=== PATIENT | female | born 1960 ===

== ENCOUNTER 2016-02-22 06:54 | Emergency (ER) | payer OTHER ==
[~2016-02-22] VITALS: Ht 152.4 cm; Wt 111.8 kg
[~2016-02-22 06:54] MED LIST: ALBU8.5H2 IH; BACL10TA PO; CALC600T12 PO; CEFT2FRO2 IV; CYCL5TAB PO; FLUT16SP NASAL; LACT10SO PO; LORA10CA PO; MAGN250T29 PO; METO10TA3 PO; MULT1TAB59 PO; OMEP20CA11 PO; OXYC5TAB72 PO; PEPCID COMPLETE PO; POTA10TA38 PO; SYMINH INHALATION
[2016-02-22 06:59] VITALS: PULSE 130; RESP 18; O2SAT 95
[2016-02-22] MEDS ORDERED: 0.9% Sodium Chloride 1,000 ML IV ONE ×2 (07:27→08:27)
[2016-02-22] MEDS ORDERED: HYDROcodone-APAP 5-325 mg Tablet PO ONE (07:30)
[2016-02-22 07:49] LABS: Platelet Count 50 bil/L (150-400)
[2016-02-22 08:03] LABS: BASOPHILS % (AUTO) 0.6 % (0-3); EOSINOPHILS % (AUTO) 4.3 % (0-5); MONOCYTES % (AUTO) 10.9 % (4-12); Mean Corpuscular Volume 98.4 fL (81-100)
[2016-02-22 09:03] LABS: Magnesium 1.6 mg/dL (1.6-2.6)
[2016-02-22 09:04] LABS: TROPONIN T < 0.010 ug/L (0.0-0.011)
--- NOTE | 2016-02-22 09:29 | ED.REPORT ---
[facility] Illness Date of Service Feb 22, 2016 ED Provider: Darrick Soares MD Patient is as 56 year old female with a hx of non-alcoholic cirrhosis who presents to the ED complaining of cold symptoms onset one day. Pt complains of general myalgia, malaise, fatigue, fever, chills, cough, headache. Pt has asthma and is on albuterol. Nursing Notes Stated Complaint: COUGH Chief Complaint: FLU/Cold Symptoms Nursing Notes Reviewed: Yes Allergies: Coded Allergies: morphine (Verified Allergy, Severe, Nausea,Vomiting, 01/27/16) prednisone (Verified Allergy, Unknown, 01/27/16) tramadol (Verified Adverse Reaction, Intermediate, Dizziness, 01/27/16) Scheduled Calcium Carbonate (Calcium) 600 Mg Tablet 600 MG PO DAILY Lactulose (Lactulose) 10 Gm/15 Ml Solution 10 GM PO TID Loratadine (Claritin) 10 Mg Capsule 10 MG PO DAILY Magnesium Oxide (Magnesium) 250 Mg Tablet 500 MG PO DAILY Multivitamin/Iron/Folic Acid (Cerovite Advanced Form Tab) 1 Each Tablet 1 EACH PO DAILY Omeprazole (Omeprazole) 20 Mg Capsule.dr 20 MG PO DAILY Potassium Chloride (Potassium Chloride) 10 Meq Tab.er.prt 10 MEQ PO BID Scheduled PRN ([Pepcid Complete]) 1-2 TAB PO PRN For Indigestion Albuterol HFA (Proair HFA) 8.5 Gm Hfa.aer.ad 2 PUFFS IH PRN For Shortness of Breath Budesonide/Formoterol 160-4.5 mcg Inh (Symbicort 160-4.5 mcg Inh) 120 Puff Inhaler 1 PUFF INHALATION BID PRN PRN For Shortness of Breath Cyclobenzaprine (Cyclobenzaprine) 5 Mg Tablet 5 MG PO TID PRN PRN Spasm Fluticasone Propionate (Fluticasone Propionate Nasal) 16 Gm [place].susp 1 SPRAY NASAL PRN allergies Metoclopramide (Metoclopramide) 10 Mg Tablet 10 MG PO QID PRN PRN For Nausea oxyCODONE (oxyCODONE) 5 Mg Tablet 5 MG PO PRN For Pain General Time Seen by Provider: 07:26 Chief Complaint Other (flu-like symptoms) Hx Obtained From: Patient Arrived By: Walk-in Onset Occurred: 1 day ago Symptom Duration: Since onset Severity: Current: No pain currently Past Medical History Past Medical History Non-alcoholic liver cirrhosis Gallbladder disease Uterine cancer Peripheral neuropathy Osteoporosis Asthma Reports: Diabetes mellitus Past Surgical History Thumb surgery Reports: Appendectomy, Hysterectomy Smoking History Former Smoker Social History Alcohol Use: Denies alcohol use Drug Use: Denies drug use Other Social History: Good social support, Local resident Ambulatory Status Independent Review of Systems Constitutional: Reports: Chills, Fatigue, Fever, Malaise Musculoskeletal: Reports: Myalgia Neurologic: Reports: Headache Complete sys rev & neg: except as marked. Physical Exam Initial Vital Signs Vital Signs (First) Date Time Temp Pulse Resp B/P Pulse Ox O2 Delivery O2 Flow Rate FiO2 02/22/16 06:59 38.4 130 18 95 02/22/16 11:10 117/66 Room Air Initial VS: Reviewed Extremities: Vascular intact, Neuro intact, No swelling, No tenderness Psychiatric: Mood/affect normal, Behavior normal, Normal thought content General/Constitutional: Awake, Alert, No acute distress Neck: Atraumatic, Supple, Full range of motion Respiratory / Chest: Breath sounds NL, Breath sounds = bilat, No rales, No rhonchi Wheezing / Retractions: Positive: Wheezing mild (mild diffuse wheezing) Cardiovascular: Regular rhythm, Heart sounds NL, No gallop, No murmurs, No rubs Heart Rate / Rhythm: Positive: Tachycardia Skin: Atraumatic, Color NL, No rash, Warm, Dry ENT: Airway patent, Mucous membranes moist, Pharynx NL no exudate no erythema in throat Abdomen: Soft, Non-tender abdomen benign Lower Extremity / Pelvis / MS: No edema Interpretation & Diagnostics Influenza A and B negative Lab Results Interpretation Result Diagram: 02/22/16 0735 02/22/16 0735 Test 02/22/16 07:35 02/22/16 11:21 White Blood Count 3.5th/mm3 (3.8-10.1) Red Blood Count 3.82mil/mm3 (3.90-5.20) Hemoglobin 12.6g/dL (12.0-15.6) Hematocrit 37.6% (35.0-46.0) Mean Corpuscular Volume 98.4fL (81-100) Mean Corpuscular Hemoglobin 33.0pg (27.0-35.0) Mean Corpuscular Hemoglobin Concent 33.5% (32.0-37.0) Red Cell Distribution Width 14.7% (12.3-15.4) Platelet Count 50bil/L (150-400) Neutrophils (%) (Auto) 71.0% (40-74) Lymphocytes (%) (Auto) 12.6% (14-46) Monocytes (%) (Auto) 10.9% (4-12) Eosinophils (%) (Auto) 4.3% (0-5) Basophils (%) (Auto) 0.6% (0-3) Sodium Level 140mEq/L (134-144) Potassium Level 3.6mEq/L (3.5-5.2) Chloride Level 107mEq/L (97-108) Carbon Dioxide Level 23mmol/L (18-29) Blood Urea Nitrogen 5mg/dL (6-24) Creatinine 0.52mg/dL (0.57-1.00) Estimat Glomerular Filtration Rate 173mL/min (>59) Glucose Level 100mg/dL (60-99) Lactic Acid Level 1.6mmol/L (0.4-2.0) Calcium Level 7.8mg/dL (8.5-10.1) Magnesium Level 1.6mg/dL (1.6-2.6) Total Bilirubin 3.6mg/dL (0.0-1.2) Aspartate Amino Transf (AST/SGOT) 52U/L (0-50) Alanine Aminotransferase (ALT/SGPT) 20U/L (0-32) Alkaline Phosphatase 158U/L (25-150) Troponin T < 0.010ug/L (0.0-0.011) Total Protein 6.2g/dL (6.4-8.4) Albumin 2.3g/dL (3.4-5.0) Hold Olivo Top Tube Received (Received) Urine Color Dark yellow (YELLOW) Urine Appearance Clear (CLEAR,HAZY) Urine pH 8.5 (5.0-8.0) Urine Specific [place] 1.010 (1.003-1.035) Urine Protein Negativemg/dL (NEG,TRACE) Urine Glucose (UA) Negativemg/dL (NEGATIVE) Urine Ketones Negativemg/dL (NEGATIVE) Urine Occult Blood Negative (NEGATIVE) Urine Nitrite Negative (NEGATIVE) Urine Bilirubin Small (NEGATIVE) Urine Ictotest Positive (Negative) Urine Urobilinogen 4.0mg/dL (NORMAL) Urine Leukocyte Esterase Negative (NEGATIVE) Urine RBC 0-2/hpf (0-2) Urine WBC 0-5/hpf (0-5) Urine Epithelial Cells Occasional/hpf (NONE-MOD) Urine Crystals None seen (NONE SEEN) Urine Bacteria Moderate/hpf (NONE-FEW) Urine Hyaline Casts None/lpf (NONE) Urine Granular Casts None seen (NONE SEEN) Urine Waxy Casts None seen (NONE SEEN) Urine Red Blood Cell Casts None seen (NONE SEEN) Urine White Blood Cell Casts None seen (NONE SEEN) Urine Mucus None seen (None Seen) Urine Trichomonas None seen (NONE SEEN) Urine Yeast None (NONE SEEN) Urinalysis Comment None Urine Culture Reflexed Indicated ECG Interpretation ECG Interpretation: Rate 109 sinus tachycardia Time: 08:52 Interpreted by: ED physician X-Ray Chest Interpretation Chest Xray Interpretation: IMPRESSION: No acute cardiopulmonary disease. Dictated by: Errol Ridley M.D. on 02/22/2016 at 9:28 Approved by: Errol Ridley M.D. on 02/22/2016 at 9:28 View: Portable Interpretation / Wet Read by: Interpret - Radiologist Re-Evaluation & [facility] Med Decision/Clinical Course Given this patient's underlying illness I felt that a more thorough workup was indicated but this did not reveal any new or acute changes to her baseline. She looked relatively comfortable and when I rechecked her vital signs just prior to discharge her she was afebrile at 37 0 with a heart rate of 90. I think that outpatient follow-up is appropriate this point I will not prescribe Tamiflu inasmuch as her influenza test was negative. Re-Evaluation/Progress : Time of Eval: 10:14 Re-Evaluation/Progress Note: Pt rechecked. Temp 370. Heart rate 90 Informed pt of diagnosis and plan for treatment. Pt understands and agrees with plan. F/U and RTER warnings given. All questions addressed. Counseled Regarding: Diagnosis, Lab results, Need for follow-up, When/why to return to ED Patient Discharge & Departure Impression: Primary Impression: Upper respiratory infection URI type: unspecified URI Qualified Code: J06.9 - Acute upper respiratory infection, unspecified Disposition: Home Discharge Condition All VS Reviewed: Yes Condition: Stable Patient Instructions: Upper Respiratory Infection (ED) Additional Instructions: Thank you for seeking care at emergency room. Get plenty of rest and fluids and take ibuprofen 400 mg every 6 hours as needed. Return to the ER immediately for any new or worsening of symptoms. Thank you for letting us partake in your care today. Follow-up in a few days if not improving. Referrals: Ernesto Armstrong MD (PCP) Scribe Attestation Portion of this note were transcribed by Rama Young and Nestor Espinoza. I, Dr. Soares, personally performed the history, physcial exam, and medical decision- making: I reviewed and confirmed the accuracy for the information in the transcribed note. Signed by: Nestor Espinoza and josiah Rosado, 02/18/16 1045. copies to: Ernesto Armstrong MD, Kirk H MD Feb 22, 2016 09:29 NESTOR ESPINOZA Feb 22, 2016 09:48 Rama Young Feb 22, 2016 10:33
--- NOTE | 2016-02-22 09:30 | DRSVH ---
PROCEDURE: X-RAY CHEST ONE VIEW, PORTABLE ([id number]) INDICATIONS: cough TECHNIQUE: One view of the chest was acquired. COMPARISON: [facility], CR, XR CHEST 1VW (PORTABLE), 11/24/2015, 0:19. [facility], CR, XR CHEST 1VW (PORTABLE), 01/27/2016, 9:53. FINDINGS: Surgical changes and devices: None. Lungs and pleura: No pleural effusions or pneumothorax. Lungs are clear. Mediastinum: Mediastinal contours appear normal. Heart size is normal. Bones and chest wall: No suspicious bony lesions. Overlying soft tissues appear unremarkable. IMPRESSION: No acute cardiopulmonary disease. Dictated by: Errol Ridley M.D. on 02/22/2016 at 9:28 Approved by: Errol Ridley M.D. on 02/22/2016 at 9:28
[2016-02-22 11:10] VITALS: BP 117/66; PULSE 116; O2SAT 93
[2016-02-22 11:30] VITALS: BP 117/66; PULSE 116; RESP 18; O2SAT 93
[2016-02-22 12:09] LABS: APPEARANCE,URINE CLEAR (CLEAR,HAZY); COLOR,URINE DARK YELLOW (YELLOW); OCCULT BLOOD,URINE NEGATIVE (NEGATIVE); PH,URINE 8.5 (5.0-8.0)
[2016-02-22 12:10] LABS: ICTOTEST,URINE POSITIVE (Negative)
[2016-02-23] MEDS ORDERED: Ondansetron 2 mg/mL 2 mL Inj IVPUSH PRN (03:20)
[2016-02-23] MEDS ORDERED: Piperacillin-Tazo 3.375 Gm Inj 3.375 GM in Dextrose 5% Minibag Plus 50 ML IV SCH (03:20)
[2016-02-23] MEDS ORDERED: Heparin 5,000 Unit/mL Inj SUBQ SCH (03:20)
[2016-02-23] MEDS ORDERED: Alum-Mag Hydrox-Simeth 30 mL Suspension PO PRN (03:20)
[2016-02-23] MEDS ORDERED: Polyethylene Glycol (PEG) 17 Gm Powder PO PRN (03:20)
[2016-02-23 05:39] LABS: INR 1.47 ratio
[2016-02-23] MEDS ORDERED: Sodium Chloride LOK Flush 10 mL Syringe IVFLUSH SCH (08:30)
[2016-02-23] MEDS ORDERED: Azithromycin Inj 500 MG in Dextrose 5% w/Vial Mate 250 ML IV SCH (08:30)
== END 2016-02-22 11:31 | disposition home or self-care (01) ==
LOC: SED 06:54
DX: J06.9 Acute upper respiratory infection, unspecified (principal); M79.1 Myalgia; R53.81 Other malaise; R50.9 Fever, unspecified; R51 Headache; J45.909 Unspecified asthma, uncomplicated; E11.40 Type 2 diabetes mellitus with diabetic neuropathy, unspecified; Z87.891 Personal history of nicotine dependence; Z88.5 Allergy status to narcotic agent; Z88.8 Allergy status to other drugs, medicaments and biological substances
CPT/HCPCS: 36415; 71010; 80053; 81000; 83605; 83735; 84484; 85025; 87040; 87086; 87088; 87186; 87804; 93005; 96361; 96374; 99285; J7030

== ENCOUNTER 2016-02-22 22:48 | Inpatient (IN) | payer OTHER ==
[~2016-02-22] VITALS: Ht 152.4 cm; Wt 117.0 kg
[2016-02-22] MEDS ORDERED: 0.9% Sodium Chloride 1,000 ML IV ONE (23:19)
[2016-02-22 23:25] VITALS: BP 125/78; PULSE 129; RESP 27; O2SAT 94
--- NOTE | 2016-02-22 23:28 | ED.REPORT ---
HPI-Altered Mental Status Date of Service Feb 22, 2016 ED Provider: Javad Hope MD 56 year old diabetic female presents to the ED via EMS accompanied by her due to generalized weakness. also reports shakes, confusion, and states that the patient slid out of bed onto the floor earlier today. Patient denies LOC. She was discharged from the department here this morning. Nursing Notes Stated Complaint: UNABLE TO STAND Chief Complaint: General Complaint Nursing Notes Reviewed: Yes Allergies: Coded Allergies: morphine (Verified Allergy, Severe, Nausea,Vomiting, 02/23/16) prednisone (Verified Allergy, Unknown, 02/23/16) tramadol (Verified Adverse Reaction, Intermediate, Dizziness, 02/23/16) Scheduled Calcium Carbonate (Calcium) 600 Mg Tablet 600 MG PO BID Lactulose (Lactulose) 10 Gm/15 Ml Solution 10 GM PO TID Loratadine (Claritin) 10 Mg Capsule 10 MG PO DAILY Magnesium Oxide (Magnesium) 250 Mg Tablet 250 MG PO DAILY Multivitamin/Iron/Folic Acid (Cerovite Advanced Form Tab) 1 Each Tablet 1 EACH PO DAILY Potassium Chloride (Potassium Chloride) 10 Meq Tab.er.prt 10 MEQ PO BID Scheduled PRN Albuterol HFA (Proair HFA) 8.5 Gm Hfa.aer.ad 2 PUFFS IH PRN For Shortness of Breath Budesonide/Formoterol 160-4.5 mcg Inh (Symbicort 160-4.5 mcg Inh) 120 Puff Inhaler 1 PUFF INHALATION BID PRN PRN For Shortness of Breath Cyclobenzaprine (Cyclobenzaprine) 5 Mg Tablet 5 MG PO TID PRN PRN Spasm Fluticasone Propionate (Fluticasone Propionate Nasal) 16 Gm [place].susp 1 SPRAY NASAL PRN allergies Metoclopramide (Metoclopramide) 10 Mg Tablet 10 MG PO QID PRN PRN For Nausea Omeprazole (Omeprazole) 20 Mg Capsule.dr 20 MG PO DAILY PRN PRN For Dyspepsia or Heartburn General Time Seen by MD: 23:17 Chief Complaint Confused, Other (Weakness) Hx Obtained From: Spouse Arrived By: Ambulance Sudden in Onset?: No Onset Occurred: 9 - 12 hours ago Symptom Duration: Since onset Related History: Reports Diabetes mellitus Past Medical History Past Medical History Non-alcoholic liver cirrhosis Gallbladder disease Uterine cancer Peripheral neuropathy Osteoporosis Asthma Reports: Diabetes mellitus Past Surgical History Thumb surgery Reports: Appendectomy, Hysterectomy Smoking History Former Smoker Social History Alcohol Use: Denies alcohol use Drug Use: Denies drug use Other Social History: Good social support, Local resident Ambulatory Status Independent Review of Systems Constitutional: Reports: Weakness - generalized, Denies: Chills, Fever Respiratory: Denies: Non-productive cough, Shortness of breath Cardiovascular: Denies: Chest pain GI: Denies: Abdominal pain, Nausea, Vomiting Neurologic: Reports: Change LOC, Confusion, Shaking, Slurred speech, Weakness, Denies: Headache, Syncope Complete sys rev & neg: except as marked. Physical Exam Initial Vital Signs Vital Signs (First) Date Time Temp Pulse Resp B/P Pulse Ox O2 Delivery O2 Flow Rate FiO2 02/22/16 23:25 37.0 129 27 125/78 94 Room Air Initial VS: Reviewed, Vital signs abnormal Abdomen / GI: Soft, Non-tender, No guarding, No rebound, No distention Extremities: Vascular intact, Neuro intact, No swelling, No tenderness Skin: Warm, Dry, No cyanosis General/Constitutional: Awake, Alert, Well developed Appearance / Presentation: Positive: Obese, morbidly Drowsy Head / Eyes: Atraumatic, Normocephalic Neck: Atraumatic, Supple, Full range of motion, No swelling, Non-tender, No midline vertebral tend, No tracheal deviation Respiratory / Chest: Breath sounds NL, Breath sounds = bilat, No respiratory distress, No rales, No rhonchi, No wheezing Cardiovascular: Heart rate NL, Regular rhythm, Heart sounds NL, Peripheral circulation NL Neurologic: Oriented X3, Speech NL, No motor deficits, No sensory deficits Mental Status: Positive: Confused Speech: Positive: Slurred Interpretation & Diagnostics Lab Results Interpretation Result Diagram: 02/23/16 0345 02/23/16 0345 Test 02/22/16 01:10 02/22/16 23:59 Urine Color Dark yellow (YELLOW) Urine Appearance Clear (CLEAR,HAZY) Urine pH 7.0 (5.0-8.0) Urine Specific [place] 1.020 (1.003-1.035) Urine Protein [place]acemg/dL (NEG,TRACE) Urine Glucose (UA) Negativemg/dL (NEGATIVE) Urine Ketones Negativemg/dL (NEGATIVE) Urine Occult Blood Small (NEGATIVE) Urine Nitrite Negative (NEGATIVE) Urine Bilirubin Small (NEGATIVE) Urine Ictotest Positive (Negative) Urine Urobilinogen Normalmg/dL (NORMAL) Urine Leukocyte Esterase Negative (NEGATIVE) Urine RBC 0-2/hpf (0-2) Urine WBC 0-5/hpf (0-5) Urine Epithelial Cells Many/hpf (NONE-MOD) Urine Crystals None seen (NONE SEEN) Urine Bacteria Few/hpf (NONE-FEW) Urine Hyaline Casts None/lpf (NONE) Urine Granular Casts None seen (NONE SEEN) Urine Waxy Casts None seen (NONE SEEN) Urine Red Blood Cell Casts None seen (NONE SEEN) Urine White Blood Cell Casts None seen (NONE SEEN) Urine Mucus None seen (None Seen) Urine Trichomonas None seen (NONE SEEN) Urine Yeast None (NONE SEEN) Urinalysis Comment None Urine Culture Reflexed Not indicated Magnesium Level 1.9mg/dL (1.6-2.6) Ammonia 255ug/dL (18-53) Lab Results Interpretation: Pancytopenia , hyperammonemia, and lactic acidosis ECG Interpretation ECG Interpretation: Sinus tachycardia, rate 123 Time: 00:03 Interpreted by: ED physician X-Ray Chest Interpretation Chest Xray Interpretation: Poor inspiration, no definite infiltrate. View: Portable, 1 view Interpretation / Wet Read by: Wet read ED physician CT Head Interpretation CONCLUSION: No acute intracranial abnormality. Mild chronic microvascular ischemic changes. Study: Head CT no contrast Interpretation / Wet Read by: Interpret - Radiologist Re-Eval/Medical Decision Med Decision/Clinical Course 56-year-old female with a long history of alcoholism and chronic renal failure presents with weakness and decreased mental status. She is found to have generalized pancytopenia, hyperammonemia, and lactic acidosis. It appears that she is dehydrated and was rehydrated. Her case was discussed with hospitalist and she will be admitted to the hospitalist service for further evaluation and treatment. Source of Hx: Old records Consultation : Referral / Consult Name: Bertha Scott MD Consulted With: Hospitalist Call Returned at: 01:48 [employer] Sc[employer] Consultant: Agrees with eval, Agrees with plan, Accepts admit Counseled Regarding: Diagnosis, Lab results, Need for admission Patient Discharge & Departure Impression: Primary Impression: Altered mental status Additional Impression: Hepatic encephalopathy Disposition: ADMITTED TO HOSPITAL Discharge Condition All VS Reviewed: Yes Condition: Stable Referrals: Ernesto Armstrong MD (PCP) Scribe Attestation Portions of this note were transcribed by Roney Alves. I, Dr. Hope, personally performed the history, physical exam and medical decision-making; I reviewed and confirmed the accuracy of the information in the transcribed note. Signed by: Zechariah Thomson. 02/23/2016, 01:52 copies to: Ernesto Armstrong MD, Howard L MD Feb 22, 2016 23:28 RONEY ALVES Feb 22, 2016 23:52 Blood Urea Nitrogen 7mg/dL (6-24) Creatinine 0.65mg/dL (0.57-1.00) Estimat Glomerular Filtration Rate 134mL/min (>59) Glucose Level 89mg/dL (60-99) Lactic Acid Level 4.5mmol/L (0.4-2.0) Calcium Level 8.1mg/dL (8.5-10.1) Magnesium Level 1.9mg/dL (1.6-2.6) Total Bilirubin 4.1mg/dL (0.0-1.2) Aspartate Amino Transf (AST/SGOT) 96U/L (0-50) Alanine Aminotransferase (ALT/SGPT) 31U/L (0-32) Alkaline Phosphatase 134U/L (25-150) Ammonia 255ug/dL (18-53) Total Protein 6.5g/dL (6.4-8.4) Albumin 2.5g/dL (3.4-5.0) ECG Interpretation ECG Interpretation: Sinus tachycardia, rate 123 Time: 00:03 Interpreted by: ED physician X-Ray Chest Interpretation Chest Xray Interpretation: Poor inspiration, no definite infiltrate. View: Portable, 1 view Interpretation / Wet Read by: Wet read ED physician CT Head Interpretation CONCLUSION: No acute intracranial abnormality. Mild chronic microvascular ischemic changes. Study: Head CT no contrast Interpretation / Wet Read by: Interpret - Radiologist Re-Eval/Medical Decision Source of Hx: Old records Consultation : Referral / Consult Name: Bertha Scott MD Consulted With: Hospitalist Call Returned at: 01:48 [employer] Scm Consultant: Agrees with eval, Agrees with plan, Accepts admit Counseled Regarding: Diagnosis, Lab results, Need for admission Patient Discharge & Departure Impression: Primary Impression: Altered mental status Additional Impression: Hepatic encephalopathy Disposition: ADMITTED TO HOSPITAL Discharge Condition All VS Reviewed: Yes Condition: Stable Referrals: Ernesto Armstrong MD (PCP) Scribe Attestation Portions of this note were transcribed by Roney Alves. I, Dr. Hope, personally performed the history, physical exam and medical decision-making; I reviewed and confirmed the accuracy of the information in the transcribed note. Signed by: Zechariah Thomson. 02/23/2016, 01:52 copies to: Ernesto Armstrong MD, Howard L MD Feb 22, 2016 23:28 RONEY ALVES Feb 22, 2016 23:52
[2016-02-23] VITALS (11 sets, daily range): BP systolic 126–147; BP diastolic 70–84; PULSE 91–122; RESP 17–26; O2SAT 92–97
[2016-02-23 00:33] LABS: BASOPHILS % (AUTO) 0.2 % (0-3); EOSINOPHILS % (AUTO) 0.2 % (0-5); MONOCYTES % (AUTO) 13.5 % (4-12); Mean Corpuscular Hemoglobin 33.4 pg (27.0-35.0); Mean Corpuscular Volume 99.2 fL (81-100); NEUTROPHILS % (AUTO) 78.8 % (40-74); Platelet Count 46 bil/L (150-400)
[2016-02-23 00:42] LABS: Magnesium 1.9 mg/dL (1.6-2.6)
[2016-02-23] MEDS ORDERED: 0.9% Sodium Chloride 1,000 ML IV ONE ×2 (01:20→03:45)
[2016-02-23 01:36] LABS: APPEARANCE,URINE CLEAR (CLEAR,HAZY); COLOR,URINE DARK YELLOW (YELLOW); OCCULT BLOOD,URINE SMALL (NEGATIVE); UROBILINOGEN,URINE NORMAL (NORMAL)
[2016-02-23 01:37] LABS: ICTOTEST,URINE POSITIVE (Negative)
[2016-02-23] MEDS ORDERED: 0.9% Sodium Chloride 500 ML IV PRN (03:37)
[2016-02-23] MEDS ORDERED: Piperacillin-Tazo 3.375 Gm Inj 3.375 GM in Dextrose 5% Minibag Plus 50 ML IV SCH ×2 (03:40→13:30)
--- NOTE | 2016-02-23 03:56 | PCM.HPMED ---
Subjective Date of Service Feb 23, 2016 Primary Provider: Admitting Physician: Bertha Scott MD Primary Care Physician: Ernesto Armstrong MD Attending Physician: Bertha Scott MD Chief Complaint: Cough and general malaise History of Present Illness: 56 year old morbidly obese female with hx BROWN, Asthma, and uterine cancer s/p hysterectomy presents to the ED for the second time in [facility] same day on 02/21/15 with complaint of on gonig lethargy, cough with sputum, and generalized weakness for 1 week. Pt states that she began feeling ill 1 week ago with dry cough that is now progressing to productive, malaise, chills, fever, decreased oral intake, and increased generalized weakness. Pt denies focal weakness. She has hx of BROWN and is taking Lactulose at home but has not been taking it while she is feeling sick. When evaluated this am it was felt that the patient had a viral URI with negative influenza screen, and she was given Tamiflu and sent home. Upon return she is more lethargic and now she has a lactic acid of 4.5. Her ammonia level is [address] head was unremarkable. Review of Systems: A comprehensive review of systems was conducted with the patient and found to be negative except as above in the History of Present Illness. Allergies Coded Allergies: morphine (Verified Allergy, Severe, Nausea,Vomiting, 02/23/16) prednisone (Verified Allergy, Unknown, 02/23/16) tramadol (Verified Adverse Reaction, Intermediate, Dizziness, 02/23/16) Home Medications Calcium Carbonate (Calcium) 600 Mg Tablet 600 MG PO DAILY Lactulose (Lactulose) 10 Gm/15 Ml Solution 10 GM PO TID Loratadine (Claritin) 10 Mg Capsule 10 MG PO DAILY Magnesium Oxide (Magnesium) 250 Mg Tablet 500 MG PO DAILY Multivitamin/Iron/Folic Acid (Cerovite Advanced Form Tab) 1 Each Tablet 1 EACH PO DAILY Omeprazole (Omeprazole) 20 Mg Capsule.dr 20 MG PO DAILY Potassium Chloride (Potassium Chloride) 10 Meq Tab.er.prt 10 MEQ PO BID Albuterol HFA (Proair HFA) 8.5 Gm Hfa.aer.ad 2 PUFFS IH PRN For Shortness of Breath Budesonide/Formoterol 160-4.5 mcg Inh (Symbicort 160-4.5 mcg Inh) 120 Puff Inhaler 1 PUFF INHALATION BID PRN PRN For Shortness of Breath Cyclobenzaprine (Cyclobenzaprine) 5 Mg Tablet 5 MG PO TID PRN PRN Spasm Fluticasone Propionate (Fluticasone Propionate Nasal) 16 Gm [place].susp 1 SPRAY NASAL PRN allergies Metoclopramide (Metoclopramide) 10 Mg Tablet 10 MG PO QID PRN PRN For Nausea oxyCODONE (oxyCODONE) 5 Mg Tablet 5 MG PO PRN For Pain PMH Non-alcoholic liver cirrhosis (BROWN) Gallbladder disease 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 GERD Asthma Right-sided retinal detachment History of gastric ulcer Cholelithiasis Osteoporosis Seasonal allergies Morbid obesity. Surgical History Thumb surgery Appendectomy Hysterectomy Tonsillectomy Retinal detachment surgery History of upper and lower endoscopy which were normal. Family History No hx of cardiac disease Family hx of unknown cancer Social History Hx Alcohol Use: No Hx Substance Use: No Hx Tobacco Use: Yes Smoking Status: Former Smoker Living Arrangement: with Family Exam Vital Signs Vital Sign - Last Date Time Temp Pulse Resp B/P Pulse Ox O2 Delivery O2 Flow Rate FiO2 02/23/16 01:20 115 24 126/71 96 Room Air 02/22/16 23:25 37.0 Intake and Output 02/22/16 02/22/16 02/23/16 Cumulative From/Thru 15:00 23:00 07:00 02/23/16 00:19 - 02/23/16 01:30 Intake Total 2000 ml 2000 ml Balance 2000 ml 2000 ml Intake IV Total 2000 ml 2000 ml Exam General: No acute distress, well-developed; morbidly obese HEENT PERRLA; anicteric Neck: No JVD; No bruits. Cardiovascular: RRR no m/r/g Pulmonary: CTA no c/r; intermittent inspiratory wheezing Abdomen: Bowel tones present. Soft, nontender, nondistended. Extremities: No clubbing, cyanosis, edema, or lymphadenopathy appreciated. Skin: Normal temperature, turgor, and texture; no rash Neurological: CN 2-12 intact. Strength 5/5. Sensation intact throughout. Coordination intact Psychiatric: Normal mood and affect. Alert and oriented to person, place, and time. Lab and Diagnostics Result Diagram: 02/22/16 7020 02/22/16 2074 X-Rays, CTs and MRIs Chest X-ray IMPRESSION: No acute cardiopulmonary disease. Dictated by: Errol Ridley M.D. on 02/22/2016 at 9:28 Assessment & Plan Suspected acute severe sepsis with suspected pulmonary source - Pt presented 02/22/16 with fever > 38.5 and negative influenza screen; she was sent home and returns due to worsening of symptoms - Currently coughing with scant sputum production; been persistent for 1 week; CXR negative - Pt given Tamiflu 75mg yesterday morning; continue BID until PCR completed and no influenza - Febrile, tachypneic, tachycardic - 2L NS infusion on admit; giving additional 2L NS as patient still appears dry - 125 ml/hr NS thereafter - procalcitonin, cbc, cmp in am - Viral PCR panel - Sputum and blood cultures - Started on Zosyn and Azithromycin; although would consider discontinuing if procalcitonin is negative and pt improves with resuscitation Acute on chronic hepatic encephalopathy with hyperammonemia - Pt presents with ongoing lethargy but oriented to place, time, and person - She has been taking less of her lactulose due to ongoing illness for the past week. - Ammonia on admit 255 - Lactulose TID until 2 BM/day Acute Lactic Acidosis - When presenting yesterday morning her LA was normal; now 4.5 - Trend out lactic acid Q2 - Fluid resuscitation BROWN chronic thrombocytopenia with hx of pancytopenia; present on admission; possibly improving - Pt has hx of stable BROWN being followed by - Has outpatient appointment on in [place] - PT/INR - AST mildly elevated; ALT normal - Albumin low - Will follow with CMP Chronic GERD; present on admission; stable - Continue home famotidine Dispo: Pt being admitted to general medical with anticipated LOS > 2 midnights due to ongoing severe sepsis and risk of complications DAY TEAM TO COMPLETE MED REC GI Prophylaxis: H2 kayleigh VTE Prophylaxis: Sub-Q Heparin (Unfractionated) Resuscitation Status: CPR: Attempt Resuscitation Attending Statement Pt seen and examined by myself and agree with above plan. Max Jett DO Feb 23, 2016 03:36 Bertha Scott MD Feb 24, 2016 06:12
[2016-02-23] MEDS: 0.9% Sodium Chloride 1,000 ML IV SCH ×3 (05:09→21:43)
[2016-02-23 05:21] LABS: BASOPHILS % (AUTO) 0.3 % (0-3); EOSINOPHILS % (AUTO) 0.3 % (0-5); MONOCYTES % (AUTO) 14.8 % (4-12); Mean Corpuscular Hemoglobin 32.9 pg (27.0-35.0); Mean Corpuscular Volume 99.7 fL (81-100)
--- NOTE | 2016-02-23 05:22 | NUR ---
Admit note: Pt admitted from ER. Required a slide transfer to bed, very weak. Alert and oriented x3, although states being confused. Ammonia level 255. On RA mid 90s. Tele ST 100-110s. Received another NS liter bolus upon arriving to unit. Lactic decreased to 2.6. Another lactic to be drawn this morning. Oriented to room and call light, and aunt in the room with pt.
[2016-02-23] MEDS ORDERED: Piperacillin-Tazo 3.375 Gm Inj 3.375 GM in Dextrose 5% Minibag Plus 50 ML IV ONE (05:30)
[2016-02-23] MEDS ORDERED: Alum-Mag Hydrox-Simeth 30 mL Suspension PO PRN (06:10)
[2016-02-23] MEDS ORDERED: Polyethylene Glycol (PEG) 17 Gm Powder PO PRN (06:10)
[2016-02-23] MEDS ORDERED: Ondansetron 2 mg/mL 2 mL Inj IVPUSH PRN (06:10)
[2016-02-23 06:39] LABS: Platelet Count 35 bil/L (150-400)
[2016-02-23] MEDS: Lactulose 20 Gm/30 mL 30 mL Syrup PO SCH ×3 (08:14→21:43)
[2016-02-23] MEDS: Azithromycin Inj 500 MG in Dextrose 5% w/Vial Mate 250 ML IV SCH (08:14)
[2016-02-23] MEDS: Heparin 5,000 Unit/mL Inj SUBQ SCH ×2 (08:15→16:34)
[2016-02-23] MEDS: Sodium Chloride LOK Flush 10 mL Syringe IVFLUSH SCH ×4 (08:24→16:32)
[2016-02-23] MEDS ORDERED: Azithromycin Inj 500 MG in Dextrose 5% w/Vial Mate 250 ML IV SCH ×4 (08:30)
[2016-02-23] MEDS ORDERED: Heparin 5,000 Unit/mL Inj SUBQ SCH (08:30)
--- NOTE | 2016-02-23 10:25 | DRSVH ---
PROCEDURE: X-RAY CHEST ONE VIEW, PORTABLE ([id number]) INDICATIONS: weakness TECHNIQUE: One view of the chest was acquired. COMPARISON: [facility], CR, XR CHEST 1VW (PORTABLE), 02/22/2016, 9:06. FINDINGS: Surgical changes and devices: None. Lungs and pleura: No pleural effusions or pneumothorax. Lungs are difficult to accurately assess du e to reduced inspiratory volume, but very mild pulmonary edema could be present. Mediastinum: Mediastinal contours appear normal. Heart size is normal. Bones and chest wall: No suspicious bony lesions. Overlying soft tissues appear unremarkable. IMPRESSION: The inspiratory volume is reduced, and the body habitus is very large, and therefore the likelihood of pulmonary edema superimposed on the lung parenchyma is considered quite low. A definit e source of weakness is not seen. Dictated by: Alfa Parks M.D. on 02/23/2016 at 10:23 Approved by: Alfa Parks M.D. on 02/23/2016 at 10:23
--- NOTE | 2016-02-23 12:06 | DRSVH ---
PROCEDURE: CT BRAIN WITHOUT CONTRAST ([id number]) INDICATIONS: confusion, weakness TECHNIQUE: Noncontrast 4.5 mm thick angled axial sections acquired from the foramen magnum to the vertex, with c oronal reformats. COMPARISON: [facility], CT, CT BRAIN WO CON, 11/24/2015, 0:06. FINDINGS: Image quality: Excellent. CSF spaces: Basal cisterns are patent. No extra-axial fluid collections. Ventricles are normal in size and shape. Brain: No midline shift. No intracranial masses or hemorrhage. López-white matter interface is norm al. Skull and face: Calvarium and visualized facial bones are intact, without suspicious lesions. Sinuses: Visualized sinuses and mastoids are clear. IMPRESSION: 1. No acute intracranial process. Dictated by: Sally Snowden M.D. on 02/23/2016 at 12:04 Approved by: Sally Snowden M.D. on 02/23/2016 at 12:04
[2016-02-23] MEDS ORDERED: cefTRIAXone Inj 2,000 MG in IV Premix 1 EACH IV SCH (12:30)
--- NOTE | 2016-02-23 12:46 | NUR ---
COBAN ON ARM PT HAD COBAN ON LEFT ARM HOLDING A COTTON BALL IN PLACE. THIS RN REMOVED THE COBAN BECAUSE IT WAS VERY TIGHT. PT EXPRESSED RELIEF WHEN COBAN REMOVED, BRUISED AREA UNDER COBAN.
[2016-02-23] MEDS ORDERED: Piper-Tazo 3.375 Gm/50 mL D5W Minibag Plus - Q8H over 4 hrs IV SCH ×2 (13:30)
--- NOTE | 2016-02-23 14:57 | NUR ---
Social Work-initial assessment: Data:See initial assessment. Pt is a 56 y/o female who was admitted on 02/23/16 for alerted LOC per H&P. Pt's insurance is and [place] [employer] [place]. Pt's PCP is Ernesto Armstrong MD. EMR Reviewed. SW met with pt, aunt Estrellita [phone] and Cristobal [phone] at bedside to discuss discharge planning, SW role explained. Pt resides at home with her Aunt in a ground floor apartment where she remains independent with ADLS. Pt does not use any DME and does not drive. Pt's aunt is available to assist / at home. Pt has no history of HH Or SNF. Pt has no terminal computer operator care or VA benefits. SW discussed DPOA/ advanced directive, pt's confirms they have no completed this paperwork and he is not interested in information. PT evaluation has been requested. SW provided phone number and plan on white board in room. Pt's family to provide transport home. SW to follow up post PT evaluation. SW will continue to follow. Assessment:Pt who is independent at baseline. Plan:Pt to discharge home when medically stable via POV. PT evaluation is pending, SW to follow up post evaluation for needs. SW will continue to follow. SERGE Zamarripa Addendum: 02/23/16 at 1501 by SYLVAIN SANTANA SS Amended: Links added.
--- NOTE | 2016-02-23 15:53 | NUR ---
NUTRITION ASSESSMENT: ASSESS: 56yo female admitted for lethargy, cough w/ sputum and generalized weakness. Pt states developing cough a week ago, which progressed to fever, chills, and weakness. Per notes, fever likely related to severe sepsis. Pt suffers from acute on chronic hepatic encephalopathy but seems alert and oriented despite some stated confusion. PMHX: BROWN, Gallbladder disease, Endometrioid adenocarcinoma, GERD, asthma, gastric ulcer, Cholelithiasis, Osteoporosis, Morbid obesity LABS: Cl 111, Sales Financial Analyst .55, Ca 7.0, Bilirubin 3.3, AST 164, ALT 36, Ammonia 255, Alb 2.0 MEDS: Reviewed. Lactulose GI: 0 BM SKIN: Ezequiel 13 CURRENT WTS: 115.3 kg BMI: 49.6 kg/m2 IBW: 45.5 kg ABW: 62.9 kg DIET: Heart Healthy CC PO 50% x 1 meal EST. NEEDS: BMI > 40 & Liver Disease Kcals: 1953-9673 kcal/day (25-30 kcal/kg ABW) Pro: 75-95 g/kg (1.2-1.5g/kg ABW) NUTRITION DIAGNOSIS: 1. Increased nutrient needs related to increased demand for nutrients per disease state as evidenced by chronic liver disease. NUTRITION INTERVENTION: 1. Will add Ensure supplement to L&D trays to enhance nutrient intake. MONITOR / EVAL: PO intake, labs, wt, GI, POC. Will continue to monitor pt per high nutritional risk guidelines.
[2016-02-24] MEDS: Heparin 5,000 Unit/mL Inj SUBQ SCH (00:30)
[2016-02-24] MEDS: Sodium Chloride LOK Flush 10 mL Syringe IVFLUSH SCH ×6 (00:30→16:07)
[2016-02-24 01:24] VITALS: BP 153/79; PULSE 91; RESP 18; O2SAT 95
[2016-02-24 04:41] VITALS: BP 142/86; PULSE 88; RESP 20; O2SAT 95
[2016-02-24] MEDS: 0.9% Sodium Chloride 1,000 ML IV SCH ×3 (04:47→22:38)
[2016-02-24] MEDS: Azithromycin Inj 500 MG in Dextrose 5% w/Vial Mate 250 ML IV SCH (04:48)
--- NOTE | 2016-02-24 06:27 | NUR ---
Activity: Pt has been able to get up to the BSC through the night with minimal assist. Feels slightly stronger tonight and clearer in the head. Lactulose has been administered, pt had a BM tonight. Medicated for some nausea this special order jeweler.
[2016-02-24 06:47] LABS: BASOPHILS % (AUTO) 0 % (0-3); EOSINOPHILS % (AUTO) 6.6 % (0-5); MONOCYTES % (AUTO) 15.4 % (4-12); Mean Corpuscular Hemoglobin 32.6 pg (27.0-35.0); Mean Corpuscular Volume 99.1 fL (81-100); NEUTROPHILS % (AUTO) 50.7 % (40-74)
[2016-02-24 06:49] LABS: Platelet Count 37 bil/L (150-400)
[2016-02-24] MEDS ORDERED: Fluticasone 0.05% 15 Spray/2 Gm 16 Gm Nasal Spray NASAL PRN (07:35)
[2016-02-24] MEDS ORDERED: Albuterol 2.5 mg/3 mL Inhalation Solution NEB PRN (07:57)
[2016-02-24 08:00] VITALS: PULSE 93
[2016-02-24] MEDS: Lactulose 20 Gm/30 mL 30 mL Syrup PO SCH ×4 (10:08→19:45)
[2016-02-24] MEDS: Fluticasone-Salmererol 250-50 Inhaler INHALATION SCH ×2 (10:13→19:50)
[2016-02-24] MEDS ORDERED: KCl 40 mEq/D5W 500 mL 40 MEQ in IV Premix 1 EACH IV ONE (12:25)
--- NOTE | 2016-02-24 16:15 | NUR ---
Evaluation completed. Please go to "Notes" then click on "Assessments and Notes" (bottom left corner of screen). Then select appropriate discipline tab on top of screen.
--- NOTE | 2016-02-24 16:45 | PCM.PNMED ---
Subjective Date of Service Feb 24, 2016 Subjective No overnight events. Patient states she is starting to feel better, able to ambulate to the bathroom. Denies fevers, chills, myalgias, CP or palpitations. Exam Vital Signs Vital Sign - Last Date Time Temp Pulse Resp B/P Pulse Ox O2 Delivery O2 Flow Rate FiO2 02/24/16 04:41 36.7 88 20 142/86 95 Room Air Intake and Output 02/23/16 02/23/16 02/24/16 Cumulative From/Thru 15:00 23:00 07:00 02/23/16 00:19 - 02/24/16 06:42 Intake Total 0 ml 536 ml 941 ml 4606 ml Output Total 0 ml 1000 ml 1050 ml 2050 ml Balance 0 ml -464 ml -109 ml 2556 ml Intake Oral 0 ml 536 ml 300 ml 836 ml IV Total 641 ml 3770 ml Output Urine Total 0 ml 1000 ml 1050 ml 2050 ml # Bowel Movements 3 1 4 Lab and Diagnostics Result Diagram: 02/24/16 0605 02/24/16 0605 X-Rays, CTs and MRIs Chest X-ray IMPRESSION: No acute cardiopulmonary disease. Dictated by: Errol Ridley M.D. on 02/22/2016 at 9:28 Assessment & Plan Patient is a 56 year old morbidly obese female with hx BROWN, Asthma, and uterine cancer s/p hysterectomy presents to the ED with complaint of ongoing lethargy, cough with sputum, and generalized weakness for 1 week. Associated symptoms of productive cough, malaise, chills, fever, decreased oral intake, and increased generalized weakness. Patient was admitted for further treatment and evaluation. Suspected acute severe sepsis (Temp 38.3, HR 115) with suspected pulmonary source Pt presented 02/22/16 with fever > 38 and negative influenza screen; she was sent home and returns due to worsening of symptoms Currently coughing with scant sputum production; been persistent for 1 week; CXR negative Viral PCR panel positive for Influenza A Tamiflu 75mg Febrile, tachypneic, tachycardic 2L NS infusion on admit; giving additional 2L NS as patient still appears dry 125 ml/hr NS thereafter Procalcitonin not significantly positive will DC abx MRSA negative Blood cultures negative 24H Acute on chronic hepatic encephalopathy with hyperammonemia, improving Pt presents with ongoing lethargy but oriented to place, time, and person She has been taking less of her lactulose due to ongoing illness for the past week. Ammonia on admit 255, down to 112 today Continue Lactulose 20 grams TID until 2 BM/day, hold for more than 3 BM/day, then will go back to home dose of 10 grams TID Pancytopenia of unknown etiology, present on admission, worsening Patient with hx of pancytopenia, per past records, no specific etiology found consider heme/onc consult Acute Lactic Acidosis, resolved. Normal on presentation, climbed to 4.5, now 1.9 Fluid resuscitation BROWN chronic thrombocytopenia with hx of pancytopenia; present on admission; possibly improving Pt has hx of stable BROWN being followed by Will postpone outpatient appointment on 02/24 in [place] PT/INR liver enzymes climbing Albumin low Will follow with CMP Chronic GERD; present on admission; stable Continue home famotidine Dispo: Discharge depends on medical stabilization, most likely tomorrow. GI Prophylaxis: H2 kayleigh VTE Prophylaxis: Sub-Q Heparin (Unfractionated) VTE Mechanical Devices: Venous Foot Pump Resuscitation Status: CPR: Attempt Resuscitation Attending Statement The patient was seen and examined together with Dr. Horn on 02/24/2016 and I agree with the history, exam and plan as outlined in the note above. Maryjane Horn DO Feb 24, 2016 07:56 Clemente Oliveros MD Feb 25, 2016 13:41
[2016-02-24 18:21] VITALS: BP 127/77; PULSE 100; RESP 20; O2SAT 97
[2016-02-24 20:13] VITALS: BP 126/75; PULSE 96; RESP 20; O2SAT 98
[2016-02-25] MEDS: Sodium Chloride LOK Flush 10 mL Syringe IVFLUSH SCH ×4 (00:30→08:30)
[2016-02-25 00:38] VITALS: BP 120/62; PULSE 100; RESP 20; O2SAT 96
[2016-02-25 04:35] VITALS: PULSE 98
[2016-02-25] MEDS: 0.9% Sodium Chloride 1,000 ML IV SCH ×2 (06:19→11:37)
[2016-02-25 06:37] VITALS: BP 135/74; PULSE 82; RESP 20; O2SAT 96
[2016-02-25 06:43] LABS: BASOPHILS % (AUTO) 0.5 % (0-3); EOSINOPHILS % (AUTO) 7.9 % (0-5); MONOCYTES % (AUTO) 14.9 % (4-12); Mean Corpuscular Volume 99.4 fL (81-100); NEUTROPHILS % (AUTO) 37.1 % (40-74); Platelet Count 45 bil/L (150-400)
[2016-02-25 06:44] LABS: INR 1.37 ratio
--- NOTE | 2016-02-25 07:00 | NUR ---
Critical Measure low Ca+ 6.8, night resident Tomasz fuller, waiting for response. Addendum: 02/25/16 at 0722 by HEATH TINOCO RN Dr. Carr" called back,no order given at this time.
[2016-02-25 08:00] VITALS: PULSE 101
[2016-02-25] MEDS: Lactulose 20 Gm/30 mL 30 mL Syrup PO SCH (08:30)
[2016-02-25] MEDS: Fluticasone-Salmererol 250-50 Inhaler INHALATION SCH (09:38)
[2016-02-25 09:55] VITALS: BP 163/81; PULSE 107; RESP 20; O2SAT 94
--- NOTE | 2016-02-25 13:19 | PCM.DIMED ---
Maryjane Horn DO 02/25/16 1319: Discharge Instructions Date of Service Feb 25, 2016 Dates of Hospitalization Feb 23, 2016 at 02:18 Discharge Diagnosis Discharge Diagnosis Severe sepsis with Influenza A as source Acute on chronic hepatic encephalopathy with hyperammonemia Acute Lactic acidosis, resolved BROWN chornic thrombocytopenia with hx of pancytopenia GERD Diet No restrictions Activity Limited until seen by PCP Call your provider Fever or Chills, Shortness of breath, Chest pain Patient Instructions Take one more dose of your Tamiflu for a total of 5 day treatment. Make sure you make a close follow up appointment with your live in caregiver, Dr. Dinesh Lance ([phone]) at to check your liver. Follow-up Provider: Ernesto Armstrong MD Follow-up with PCP in: 2 weeks Clemente Oliveros MD 02/25/16 1342: Maryjane Horn DO Feb 25, 2016 13:19 Clemente Oliveros MD Feb 25, 2016 13:42
[2016-02-25] MEDS ORDERED: OSLT75C PO (13:20)
--- NOTE | 2016-02-25 13:36 | PCM.DC.MED ---
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 Dictated by: Errol Ridley M.D. on 02/22/2016 at 9:28 Brief History 56 year old morbidly obese female with hx BROWN, Asthma, and uterine cancer s/p hysterectomy presents to the ED for the second time in [facility] same day on 02/21/15 with complaint of on gonig lethargy, cough with sputum, and generalized weakness for 1 week. Pt states that she began feeling ill 1 week ago with dry cough that is now progressing to productive, malaise, chills, fever, decreased oral intake, and increased generalized weakness. Pt denies focal weakness. She has hx of BROWN and is taking Lactulose at home but has not been taking it while she is feeling sick. When evaluated this am it was felt that the patient had a viral URI with negative influenza screen, and she was given Tamiflu and sent home. Upon return she is more lethargic and now she has a lactic acid of 4.5. Her ammonia level is [address] head was unremarkable. Hospital Course Patient is a 56 year old morbidly obese female with hx BROWN, Asthma, and uterine cancer s/p hysterectomy presents to the ED with complaint of ongoing lethargy, cough with sputum, and generalized weakness for 1 week. Associated symptoms of productive cough, malaise, chills, fever, decreased oral intake, and increased generalized weakness. Patient was admitted for further treatment and evaluation. Suspected acute severe sepsis (Temp 38.3, HR 115) with suspected pulmonary source Pt presented 02/22/16 with fever > 38 and negative influenza screen; she was sent home and returns due to worsening of symptoms Currently coughing with scant sputum production; been persistent for 1 week; CXR negative Viral PCR panel positive for Influenza A Tamiflu 75mg Febrile, tachypneic, tachycardic 2L NS infusion on admit; giving additional 2L NS as patient still appears dry 125 ml/hr NS thereafter Procalcitonin not significantly positive will DC abx MRSA negative Blood cultures negative 24H Acute on chronic hepatic encephalopathy with hyperammonemia, improving Pt presents with ongoing lethargy but oriented to place, time, and person She has been taking less of her lactulose due to ongoing illness for the past week. Ammonia on admit 255, down to 112 today Continue Lactulose 20 grams TID until 2 BM/day, hold for more than 3 BM/day, then will go back to home dose of 10 grams TID Pancytopenia of unknown etiology, present on admission, worsening Patient with hx of pancytopenia, per past records, no specific etiology found consider heme/onc consult as outpatient Acute Lactic Acidosis, resolved. Normal on presentation, climbed to 4.5, now 1.9 Fluid resuscitation BROWN chronic thrombocytopenia with hx of pancytopenia; present on admission; possibly improving Pt has hx of stable BROWN being followed by Will postpone outpatient appointment on 02/24 in [place] PT/INR liver enzymes climbing Albumin low Will follow with CMP Chronic GERD; present on admission; stable Continue home famotidine FOLLOW UP NEEDED: Patient's liver enzyme continued to increase through hospitalization. Patient needs close follow up with her delivery supervisor, Dr. Dinesh Lance ([phone]) at for this. Consider hematology work up for patient's chronic pancytopenia. Exam Vital Signs (Last) Date Time Temp Pulse Resp B/P Pulse Ox O2 Delivery O2 Flow Rate FiO2 02/25/16 09:55 36.8 107 20 163/81 94 Room Air Test 02/22/16 01:10 02/22/16 23:59 02/23/16 03:45 02/24/16 06:05 Urine Color Dark yellow (YELLOW) Urine Appearance Clear (CLEAR,HAZY) Urine pH 7.0 (5.0-8.0) Urine Specific [place] 1.020 (1.003-1.035) Urine Protein Tracemg/dL (NEG,TRACE) Urine Glucose (UA) Negativemg/dL (NEGATIVE) Urine Ketones Negativemg/dL (NEGATIVE) Urine Occult Blood Small (NEGATIVE) Urine Nitrite Negative (NEGATIVE) Urine Bilirubin Small (NEGATIVE) Urine Ictotest Positive (Negative) Urine Urobilinogen Normalmg/dL (NORMAL) Urine Leukocyte Esterase Negative (NEGATIVE) Urine RBC 0-2/hpf (0-2) Urine WBC 0-5/hpf (0-5) Urine Epithelial Cells Many/hpf (NONE-MOD) Urine Crystals None seen (NONE SEEN) Urine Bacteria Few/hpf (NONE-FEW) Urine Hyaline Casts None/lpf (NONE) Urine Granular Casts None seen (NONE SEEN) Urine Waxy Casts None seen (NONE SEEN) Urine Red Blood Cell Casts None seen (NONE SEEN) Urine White Blood Cell Casts None seen (NONE SEEN) Urine Mucus None seen (None Seen) Urine Trichomonas None seen (NONE SEEN) Urine Yeast None (NONE SEEN) Urinalysis Comment None Urine Culture Reflexed Not indicated Magnesium Level 1.9mg/dL (1.6-2.6) Procalcitonin 0.78ng/mL (See Comment) Lactic Acid Level 1.9mmol/L (0.4-2.0) Ammonia 112ug/dL (18-53) Test 02/25/16 06:00 White Blood Count 2.0th/mm3 (3.8-10.1) Red Blood Count 3.36mil/mm3 (3.90-5.20) Hemoglobin 11.1g/dL (12.0-15.6) Hematocrit 33.4% (35.0-46.0) Mean Corpuscular Volume 99.4fL (81-100) Mean Corpuscular Hemoglobin 33.0pg (27.0-35.0) Mean Corpuscular Hemoglobin Concent 33.2% (32.0-37.0) Red Cell Distribution Width 14.8% (12.3-15.4) Platelet Count 45bil/L (150-400) Neutrophils (%) (Auto) 37.1% (40-74) Lymphocytes (%) (Auto) 39.1% (14-46) Monocytes (%) (Auto) 14.9% (4-12) Eosinophils (%) (Auto) 7.9% (0-5) Basophils (%) (Auto) 0.5% (0-3) Prothrombin Time 14.8sec (8.1-12.5) Prothromb Time International Ratio 1.37ratio Sodium Level 142mEq/L (134-144) Potassium Level 3.8mEq/L (3.5-5.2) Chloride Level 114mEq/L (97-108) Carbon Dioxide Level 22mmol/L (18-29) Blood Urea Nitrogen 5mg/dL (6-24) Creatinine 0.40mg/dL (0.57-1.00) Estimat Glomerular Filtration Rate 235mL/min (>59) Glucose Level 87mg/dL (60-99) Calcium Level 6.8mg/dL (8.5-10.1) Total Bilirubin 1.8mg/dL (0.0-1.2) Aspartate Amino Transf (AST/SGOT) 507U/L (0-50) Alanine Aminotransferase (ALT/SGPT) 82U/L (0-32) Alkaline Phosphatase 137U/L (25-150) Total Protein 5.0g/dL (6.4-8.4) Albumin 1.9g/dL (3.4-5.0) Discharge Medications Discharge Medications Calcium Carbonate (Calcium) 600 Mg Tablet 600 MG PO BID (Reported) Lactulose (Lactulose) 10 Gm/15 Ml Solution 10 GM PO TID (Reported) Loratadine (Claritin) 10 Mg Capsule 10 MG PO DAILY (Reported) Magnesium Oxide (Magnesium) 250 Mg Tablet 250 MG PO DAILY (Reported) Multivitamin/Iron/Folic Acid (Cerovite Advanced Form Tab) 1 Each Tablet 1 EACH PO DAILY (Reported) Oseltamivir Phosphate (Tamiflu) 10 Cap/Pkg Capsule 75 MG PO BID Prescribed by: MARYJANE HORN DO Potassium Chloride (Potassium Chloride) 10 Meq Tab.er.prt 10 MEQ PO BID ( Reported) As needed Albuterol HFA (Proair HFA) 8.5 Gm Hfa.aer.ad 2 PUFFS IH PRN For Shortness of Breath (Reported) Budesonide/Formoterol 160-4.5 mcg Inh (Symbicort 160-4.5 mcg Inh) 120 Puff Inhaler 1 PUFF INHALATION BID PRN PRN For Shortness of Breath (Reported) Cyclobenzaprine (Cyclobenzaprine) 5 Mg Tablet 5 MG PO TID PRN PRN Spasm ( Reported) Fluticasone Propionate (Fluticasone Propionate Nasal) 16 Gm [place].susp 1 SPRAY NASAL PRN allergies (Reported) Metoclopramide (Metoclopramide) 10 Mg Tablet 10 MG PO QID PRN PRN For Nausea ( Reported) Omeprazole (Omeprazole) 20 Mg Capsule. 20 MG PO DAILY PRN PRN For Dyspepsia or Heartburn (Reported) Followup Plan Discharge Diet: No restrictions Discharge Activity: Limited until seen by PCP Patient Instructions Take one more dose of your Tamiflu for a total of 5 day treatment. Make sure you make a close follow up appointment with your delivery supervisor, Dr. Dinesh Lance ([phone]) at to check your liver. Follow-up Provider: Ernesto Armstrong MD Follow-up with PCP in: 2 weeks Time spent 35 minutes Attending Statement The patient was seen and examined together with Dr. Horn on 02/25/2016 and I agree with the history, exam and plan as outlined in the note above. Maryjane Horn DO Feb 25, 2016 13:23 Clemente Oliveros MD Feb 25, 2016 13:42
--- NOTE | 2016-02-25 13:43 | NUR ---
Social Work: Discharge Data: Pt is on day 2 of hospitalization. EMR reviewed, pt discussed in rounds. D/C orders are in. PT recommends no further PT needs. No further d/c planning needs at this time. PRECISION DANCER will continue to follow if needs arise. Assessment: Pt who is independent at baseline. Plan: Pt will d/c home via POV today. No further d/c planning needs at this time. PRECISION DANCER will continue to follow if needs arise. SERGE Potter
--- NOTE | 2016-02-25 15:41 | NUR ---
Discharge: Patient discharged to home @ approx 1530. IV d/c'd intact. Telemetry removed, qc lab technician notified. Personal belongings sent home w/patient. Reviewed new prescription, home medication list, discharge instructions, and follow up appointments. Verbalized understanding. Escorted to main entrance via wheelchair accompanied by ELECTRONICS HARDWARE DESIGN ENGINEER and family.
== END 2016-02-25 15:26 | disposition home or self-care (01) | DRG 871 ==
LOC: SED 22:48 → EDBD 22:48 → MPC 02-23 02:18
PROVIDERS: ADMIT Specialist; ATTEND Specialist
DX: A41.9 Sepsis, unspecified organism (principal); K72.00 Acute and subacute hepatic failure without coma; E72.20 Disorder of urea cycle metabolism, unspecified; J10.1 Influenza due to other identified influenza virus with other respiratory manifestations; D69.6 Thrombocytopenia, unspecified; G62.9 Polyneuropathy, unspecified; K21.9 Gastro-esophageal reflux disease without esophagitis; E66.01 Morbid (severe) obesity due to excess calories; Z68.22 Body mass index [BMI] 22.0-22.9, adult; Z87.891 Personal history of nicotine dependence

== ENCOUNTER 2016-04-22 19:57 | Observation (INO) | payer OTHER ==
[~2016-04-22] VITALS: Ht 152.4 cm; Wt 117.5 kg
[~2016-04-22 19:57] MED LIST changes: -BACL10TA PO; -CEFT2FRO2 IV; +OSLT75C PO; -OXYC5TAB72 PO; -PEPCID COMPLETE PO
[2016-04-22 20:20] VITALS: BP 144/82; PULSE 103; RESP 22; O2SAT 98
[2016-04-22] MEDS ORDERED: RIFA550T3 PO (20:24)
[2016-04-22 20:55] LABS: BASOPHILS % (AUTO) 0.3 % (0-3); EOSINOPHILS % (AUTO) 2.5 % (0-5); MONOCYTES % (AUTO) 12.4 % (4-12); Mean Corpuscular Hemoglobin 32.9 pg (27.0-35.0); NEUTROPHILS % (AUTO) 52.1 % (40-74); Platelet Count 51 bil/L (150-400)
[2016-04-22 21:16] LABS: Magnesium 1.9 mg/dL (1.6-2.6)
[2016-04-22 21:27] VITALS: BP 135/64; PULSE 97; RESP 24; O2SAT 100
--- NOTE | 2016-04-22 21:44 | ED.REPORT ---
HPI-General Illness Date of Service Apr 22, 2016 ED Provider: Javad Hope MD Pt is a 56 y.o. female with an extensive medical hx including cirrhosis, peripheral neuropathy, gallbladder disease, and DM who presents to the ED c/o bilateral flank pain onset today. Pt also reports bilateral hand pain and cramping. She states that she took 5mg of Cyclobenzaprine with no relief. Nursing Notes Stated Complaint: PAIN IN HANDS, LEGS Chief Complaint: General Complaint Nursing Notes Reviewed: Yes Allergies: Coded Allergies: morphine (Verified Allergy, Severe, Nausea,Vomiting, 02/23/16) prednisone (Verified Allergy, Unknown, 02/23/16) tramadol (Verified Adverse Reaction, Intermediate, Dizziness, 02/23/16) Scheduled Calcium Carbonate (Calcium) 600 Mg Tablet 600 MG PO BID Lactulose (Lactulose) 10 Gm/15 Ml Solution 10 GM PO TID Loratadine (Claritin) 10 Mg Capsule 10 MG PO DAILY Magnesium Oxide (Magnesium) 250 Mg Tablet 250 MG PO DAILY Multivitamin/Iron/Folic Acid (Cerovite Advanced Form Tab) 1 Each Tablet 1 EACH PO DAILY Potassium Chloride (Potassium Chloride) 10 Meq Tab.er.prt 10 MEQ PO BID Rifaximin (Xifaxan) 550 Mg Tablet 550 MG PO BID Scheduled PRN Albuterol HFA (Proair HFA) 8.5 Gm Hfa.aer.ad 2 PUFFS IH PRN For Shortness of Breath Budesonide/Formoterol 160-4.5 mcg Inh (Symbicort 160-4.5 mcg Inh) 120 Puff Inhaler 1 PUFF INHALATION BID PRN PRN For Shortness of Breath Cyclobenzaprine (Cyclobenzaprine) 5 Mg Tablet 5 MG PO TID PRN PRN Spasm Fluticasone Propionate (Fluticasone Propionate Nasal) 16 Gm [place].susp 1 SPRAY NASAL PRN allergies Metoclopramide (Metoclopramide) 10 Mg Tablet 10 MG PO QID PRN PRN For Nausea Omeprazole (Omeprazole) 20 Mg Capsule.dr 20 MG PO DAILY PRN PRN For Dyspepsia or Heartburn Ondansetron ODT (Ondansetron ODT) 8 Mg Tab.rapdis 8 MG PO QID PRN PRN For Nausea General Time Seen by MD: 21:41 Chief Complaint Abdominal pain Hx Obtained From: Patient Arrived By: Walk-in Sudden in Onset?: Yes Onset Occurred: 5 - 8 hours ago Symptom Duration: Since onset Location: : Abdomen: Hand left: Hand right Quality: Painful Severity: Current: Severe Past Medical History Past Medical History Non-alcoholic liver cirrhosis Gallbladder disease Uterine cancer Peripheral neuropathy Osteoporosis Asthma Reports: Diabetes mellitus Past Surgical History Thumb surgery Reports: Appendectomy, Hysterectomy Smoking History Former Smoker Social History Alcohol Use: Denies alcohol use Drug Use: Denies drug use Other Social History: Good social support, Local resident Ambulatory Status Independent Review of Systems Full Review of Systems Constitutional: Denies: Chills, Fever GI: Reports: Abdominal pain, Denies: Diarrhea, Nausea, Vomiting Musculoskeletal: Reports: Extremity pain (bilateral hands) Complete sys rev & neg: except as marked. Physical Exam Vital Signs Vital Signs Date Time Temp Pulse Resp B/P Pulse Ox O2 Delivery O2 Flow Rate FiO2 04/23/16 00:01 92 20 149/74 98 Room Air 04/22/16 21:27 97 24 135/64 100 Room Air 04/22/16 20:20 37.1 103 22 144/82 98 Room Air Initial VS: Reviewed, Vital signs abnormal Extremities: Vascular intact, Neuro intact Skin: Warm, Dry, No cyanosis Neurologic: Alert, Oriented, Nonfocal Psychiatric: Mood/affect normal, Behavior normal, Normal thought content General/Constitutional: Awake, Alert, Well appearing, Well developed, Well hydrated, Well nourished, Not toxic appearing Appearance / Presentation: Positive: Obese, morbidly, Uncomfortable Head / Eyes: Atraumatic, Normocephalic Respiratory / Chest: Atraumatic, Breath sounds NL, Breath sounds = bilat, No respiratory distress, No rales, No rhonchi, No wheezing, No retractions, No stridor Cardiovascular: Heart rate NL, Regular rhythm, Heart sounds NL Abdomen: Atraumatic, Soft, No guarding, No rebound, No distention Tenderness/Guarding/Rebound: Positive: Tender diffuse Interpretation & Diagnostics Lab Results Interpretation Result Diagram: 04/22/16204404/22/162044 Test 04/22/16 20:45 04/22/16 22:05 04/22/16 22:40 White Blood Count 3.2th/mm3 (3.8-10.1) Red Blood Count 3.71mil/mm3 (3.90-5.20) Hemoglobin 12.2g/dL (12.0-15.6) Hematocrit 37.1% (35.0-46.0) Mean Corpuscular Volume 100.0fL (81-100) Mean Corpuscular Hemoglobin 32.9pg (27.0-35.0) Mean Corpuscular Hemoglobin Concent 32.9% (32.0-37.0) Red Cell Distribution Width 15.6% (12.3-15.4) Platelet Count 51bil/L (150-400) Neutrophils (%) (Auto) 52.1% (40-74) Lymphocytes (%) (Auto) 32.4% (14-46) Monocytes (%) (Auto) 12.4% (4-12) Eosinophils (%) (Auto) 2.5% (0-5) Basophils (%) (Auto) 0.3% (0-3) Sodium Level 141mEq/L (134-144) Potassium Level 3.4mEq/L (3.5-5.2) Chloride Level 111mEq/L (97-108) Carbon Dioxide Level 20mmol/L (18-29) Blood Urea Nitrogen 3mg/dL (6-24) Creatinine 0.54mg/dL (0.57-1.00) Estimat Glomerular Filtration Rate 166mL/min (>59) Glucose Level 101mg/dL (60-99) Calcium Level 7.4mg/dL (8.5-10.1) Magnesium Level 1.9mg/dL (1.6-2.6) Total Bilirubin 3.1mg/dL (0.0-1.2) Aspartate Amino Transf (AST/SGOT) 55U/L (0-50) Alanine Aminotransferase (ALT/SGPT) 21U/L (0-32) Alkaline Phosphatase 154U/L (25-150) Total Protein 6.1g/dL (6.4-8.4) Albumin 2.3g/dL (3.4-5.0) Lipase 130U/L (13-60) Hold Olivo Top Tube Received (Received) Ammonia 98ug/dL (18-53) Urine Color Dark yellow (YELLOW) Urine Appearance Clear (CLEAR,HAZY) Urine pH 5.5 (5.0-8.0) Urine Specific [place] 1.020 (1.003-1.035) Urine Protein Negativemg/dL (NEG,TRACE) Urine Glucose (UA) Negativemg/dL (NEGATIVE) Urine Ketones Negativemg/dL (NEGATIVE) Urine Occult Blood Trace (NEGATIVE) Urine Nitrite Negative (NEGATIVE) Urine Bilirubin Negative (NEGATIVE) Urine Urobilinogen Normalmg/dL (NORMAL) Urine Leukocyte Esterase Negative (NEGATIVE) Urine RBC 0-2/hpf (0-2) Urine WBC 0-5/hpf (0-5) Urine Epithelial Cells Few/hpf (NONE-MOD) Urine Crystals None seen (NONE SEEN) Urine Bacteria None/hpf (NONE-FEW) Urine Hyaline Casts None/lpf (NONE) Urine Granular Casts None seen (NONE SEEN) Urine Waxy Casts None seen (NONE SEEN) Urine Red Blood Cell Casts None seen (NONE SEEN) Urine White Blood Cell Casts None seen (NONE SEEN) Urine Mucus None seen (None Seen) Urine Trichomonas None seen (NONE SEEN) Urine Yeast None (NONE SEEN) Urine Culture Reflexed Not indicated Lab Results Interpretation: Elevated lipase, elevated ammonia level CT Abd / Pelvis Interpretation CONCLUSION: 1. Nodular liver contour suggestive of cirrhosis 2. Mild splenomegaly 3. Possible thrombosis of the right and left portal veins 4. Mild ascites 5. Gallstones and gallbladder wall thickening. The wall thickening could be reactive from diffuse liver disease; however, if there is clinical concern for cholecystitis, ultrasound is recommended Radiologist: Owen Jerez MD US Focused Biliary IMPRESSION: Limited visualization. Gallstones. Borderline gallbladded wall thickening measuring 3-4mm. Common duct not well visualized. Radiologist: Owen Jerez MD Re-Eval/Medical Decision Med Decision/Clinical Course 56-year-old female with BROWN presents with increasing abdominal pain and vomiting. She does have an elevated lipase. CT scan is unremarkable with the exception of gallstones and possibly gallbladder wall thickening. We are unable to really visualize the gallbladder on ultrasound so cannot further delineate that. She initially wanted to go home but vomited around 500 mL of undigested food and decided she needed to stay. She will be admitted to the hospitalist service for further evaluation and treatment. Source of Hx: Old records Time of Eval: 01:29 Re-Evaluation/Progress Note: Pt rechecked. Pt states that she would like to leave. Discussed plan for discharge, pt understands and agrees with plan. Time of Eval: 02:04 Re-Evaluation/Progress Note: Per nurse pt has vomited over 500ml. Discussed with pt need for admit. Pt agrees with plan for admit. Consultation : Referral / Consult Name: Bertha Scott MD Consulted With: Hospitalist Call Returned at: 02:15 Geometry Tutor: Will see patient, Agrees with eval, Agrees with plan, Accepts admit Note: Discussed pt condition. Accepts admit. Counseled Regarding: Diagnosis, Need for admission Discharge & Departure Primary Impression: Abdominal pain Abdominal location: generalized Qualified Code: R10.84 - Generalized abdominal pain Additional Impression: Pancreatitis Chronicity: acute Pancreatitis type: unspecified pancreatitis type Qualified Code: K85.9 - Acute pancreatitis, unspecified Disposition: ADMITTED TO HOSPITAL Discharge Condition All VS Reviewed: Yes Condition: Improved Patient Instructions: Pancreatitis (ED) Additional Instructions: You have some inflammation of the pancreas, the cause is uncertain. It would be reasonable for you to be admitted, but you desire to go home. Ondansetron 8 mg ODT 4 times a day when necessary, #10 prescription written. Your ammonia is also mildly elevated, so continue your medications. Clear liquids only at home. Follow-up with your regular doctor as needed for persistent symptoms. Return here if you worsen. Referrals: Ernesto Armstrong MD (PCP) Scribe Attestation Portions of this note were transcribed by Jaylon Shahid. I, Dr. Hope personally performed the history, physical exam and medical decision-making; I reviewed and confirmed the accuracy of the information in the transcribed note. Signed by: Zechariah Krishnan, 04/23/16 and 0216. copies to: Ernesto Armstrong MD, Howard L MD Apr 22, 2016 21:44 JAYLON SHAHID Apr 22, 2016 21:51
[2016-04-22] MEDS ORDERED: Potassium Chloride 20 mEq SR Tablet PO ONE (21:55)
[2016-04-22] MEDS ORDERED: 0.9% Sodium Chloride 1,000 ML IV ONE (22:05)
[2016-04-22] MEDS ORDERED: Ondansetron 2 mg/mL 2 mL Inj IVPUSH PRN (22:05)
[2016-04-22] MEDS: HYDROmorphone 0.5 mg/0.5 mL iSecure Syringe IVPUSH PRN (22:44)
[2016-04-22 23:13] LABS: APPEARANCE,URINE CLEAR (CLEAR,HAZY); COLOR,URINE DARK YELLOW (YELLOW); OCCULT BLOOD,URINE TRACE (NEGATIVE); PH,URINE 5.5 (5.0-8.0); UROBILINOGEN,URINE NORMAL (NORMAL)
[2016-04-23] VITALS (9 sets, daily range): BP systolic 133–164; BP diastolic 74–85; PULSE 84–109; RESP 16–20; O2SAT 96–99
[2016-04-23] MEDS ORDERED: MetoCLOpramide 5 mg/mL 2 mL Inj IVPUSH ONE (00:05)
[2016-04-23] MEDS ORDERED: 0.9% Sodium Chloride 50 ML ONE (00:06)
[2016-04-23] MEDS: HYDROmorphone 0.5 mg/0.5 mL iSecure Syringe IVPUSH PRN (00:13)
[2016-04-23] MEDS ORDERED: ONDA8TAB10 PO (01:36)
[2016-04-23] MEDS ORDERED: 0.9% Sodium Chloride 1,000 ML IV SCH (03:14)
[2016-04-23] MEDS ORDERED: Alum-Mag Hydrox-Simeth 30 mL Suspension PO PRN (03:15)
[2016-04-23] MEDS ORDERED: Polyethylene Glycol (PEG) 17 Gm Powder PO PRN (03:15)
[2016-04-23] MEDS ORDERED: Ondansetron 2 mg/mL 2 mL Inj IVPUSH ONE (03:15)
[2016-04-23] MEDS ORDERED: Ondansetron 2 mg/mL 2 mL Inj IVPUSH PRN (03:15)
[2016-04-23] MEDS ORDERED: Promethazine Inj 12.5 MG in Dextrose 5%-Pha MIX 50 ML IV ONE (04:05)
--- NOTE | 2016-04-23 04:30 | PCM.HPMED ---
Subjective Date of Service Apr 23, 2016 Primary Provider: Admitting Physician: Bertha Scott MD Primary Care Physician: Ernesto Armstrong MD Attending Physician: Bertha Scott MD Admit Status: From the Emergency Department Chief Complaint: Nausea, Vomiting, Stomach Cramps History of Present Illness: Patient is a 56-year-old morbidly obese woman with history of BROWN, peripheral neuropathy, gallbladder disease, diabetes mellitus who presented to the emergency department complaining of bilateral flank pain starting today, and abdominal cramping for the last couple of days. Prior to coming in she took 5 mg of cyclobenzaprine with no relief. She claims that she has had abdominal cramping before and for several days but the bilateral flank pain is now in the inciting event for presentation to the ER without any resolution after taking medication. The cramping in her abdomen is described as bilateral upper quadrants coming and going. In the emergency department she had a white blood cell count of 3.2, hemoglobin 12.2, presents of 51, sodium was 141, potassium 3.4, chloride 111, BUN 3, creatinine 0.54, blood glucose 101. Bicarbonate 20. Lipase 130, ammonia 98, AST mildly elevated at 55, ALT was normal. Urinalysis: Dark yellow, pH 5.5, specific gravity 1.02, no protein, no glucose, no ketones, trace occult blood, no bilirubin and nitrites, negative leukocyte esterase, no RBCs, no WBCs, few epithelial cells. She received a CT abdominal/pelvis in the ER, night read: Liver contour suggesting cirrhosis, mild splenomegaly, possible thrombosis of right and left portal veins, mild ascites, gallstones and gallbladder wall thickening. Ultrasound was performed to assess gallbladder wall thickening: Limited visualization, borderline gallbladder wall thickening measuring 3-4 mm, unable to visualize common bile duct well. EKG performed in the department showed a QTC of 496, normal sinus, normal rate, normal axis, abnormal R-wave progression. No signs of acute ischemia or infarction Patient denied any lightheadedness, dizziness, chest pain, shortness of breath other than her normal asthma symptoms, she stated some cramping in her hands and upper extremities, no diarrhea, no constipation, no melena, no hematochezia , no recent alcohol use, no fevers, chills, cold sweats, tremors, she does have swelling in her lower extremities which she does not describe his new" occurs occasionally." No dysuria, no increase urination frequency. She was prepared for discharge from the emergency department when she vomited, ER nurse reported, roughly 500 mL of stomach contents. There was no blood present, at which point based on continued abdominal pain, vomiting refractory to IV antiemetics, and elevated lipase, patient agreed to be admitted for observation. Review of Systems: Comprehensive ROS is negative unless specified in history of present illness Allergies Coded Allergies: morphine (Verified Allergy, Severe, Nausea,Vomiting, 02/23/16) prednisone (Verified Allergy, Unknown, 02/23/16) tramadol (Verified Adverse Reaction, Intermediate, Dizziness, 02/23/16) Home Medications Calcium Carbonate (Calcium) 600 Mg Tablet 600 MG PO BID Lactulose (Lactulose) 10 Gm/15 Ml Solution 10 GM PO TID Loratadine (Claritin) 10 Mg Capsule 10 MG PO DAILY Magnesium Oxide (Magnesium) 250 Mg Tablet 250 MG PO DAILY Multivitamin/Iron/Folic Acid (Cerovite Advanced Form Tab) 1 Each Tablet 1 EACH PO DAILY Potassium Chloride (Potassium Chloride) 10 Meq Tab.er.prt 10 MEQ PO BID Rifaximin (Xifaxan) 550 Mg Tablet 550 MG PO BID Scheduled PRN Albuterol HFA (Proair HFA) 8.5 Gm Hfa.aer.ad 2 PUFFS IH PRN For Shortness of Breath Budesonide/Formoterol 160-4.5 mcg Inh (Symbicort 160-4.5 mcg Inh) 120 Puff Inhaler 1 PUFF INHALATION BID PRN PRN For Shortness of Breath Cyclobenzaprine (Cyclobenzaprine) 5 Mg Tablet 5 MG PO TID PRN PRN Spasm Fluticasone Propionate (Fluticasone Propionate Nasal) 16 Gm [place].susp 1 SPRAY NASAL PRN allergies Metoclopramide (Metoclopramide) 10 Mg Tablet 10 MG PO QID PRN PRN For Nausea Omeprazole (Omeprazole) 20 Mg Capsule.dr 20 MG PO DAILY PRN PRN For Dyspepsia or Heartburn Ondansetron ODT (Ondansetron ODT) 8 Mg Tab.rapdis 8 MG PO QID PRN PRN For Nausea PMH Non-alcoholic liver cirrhosis (BROWN) Gallbladder disease 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 GERD Asthma Right-sided retinal detachment History of gastric ulcer Cholelithiasis Osteoporosis Seasonal allergies Morbid obesity. Surgical History Thumb surgery Appendectomy Hysterectomy Tonsillectomy Retinal detachment surgery History of upper and lower endoscopy which were normal. Family History No hx of cardiac disease Family hx of unknown cancer Social History Hx Alcohol Use: No Hx Substance Use: No Hx Tobacco Use: Yes Smoking Status: Former Smoker Living Arrangement: with Family Exam Vital Signs Vital Sign - Last Date Time Temp Pulse Resp B/P Pulse Ox O2 Delivery O2 Flow Rate FiO2 04/23/16 03:59 36.8 94 16 146/80 96 Room Air Intake and Output 04/22/16 04/22/16 04/23/16 Cumulative From/Thru 15:00 23:00 07:00 04/22/16 20:20 - 04/23/16 04:00 Intake Total 1000 ml 1000 ml Output Total 500 ml 500 ml Balance 500 ml 500 ml Intake IV Total 1000 ml 1000 ml Output Urine Total 500 ml 500 ml Exam General: Laying in bed, on her right side, feet hanging over side of the bed, in mild distress, vomitus on hospital gown, very sleepy. HEENT: Normocephalic, atraumatic, EOMI grossly, his membranes moist Cardiovascular: Regular rate and rhythm, no clicks murmurs rubs, peripheral pulses 2/4 equal bilaterally Pulmonary: Expiratory wheeze throughout lung brown, sonorous rhonchi throughout lung brown with inspiration. Abdominal: Soft to palpation, diffuse tenderness, negative Hendrickson's, negative rebound. No Olivo Watkins or or maritza sign Extremities: Bilateral lower extremity pitting edema, half fingerbreadth deep to the level of the knee. Neuro: Neurologically grossly intact, strength is equal bilaterally upper and lower extremities. MSK: able to move extremities on their own volition, Psych: Patient is very sleepy, however easily arousable and follows commands, is able to answer questions appropriately and thoroughly. Lab and Diagnostics Labs Ammonia 98, lipase 130 Result Diagram: 04/22/16204404/[id number]/162044 X-Rays, CTs and MRIs CT Abd / Pelvis Interpretation CONCLUSION: 1. Nodular liver contour suggestive of cirrhosis 2. Mild splenomegaly 3. Possible thrombosis of the right and left portal veins 4. Mild ascites 5. Gallstones and gallbladder wall thickening. The wall thickening could be reactive from diffuse liver disease; however, if there is clinical concern for cholecystitis, ultrasound is recommended Radiologist: Owne Jerez MD US Focused Biliary IMPRESSION: Limited visualization. Gallstones. Borderline gallbladded wall thickening measuring 3-4mm. Common duct not well visualized. Radiologist: Owen Jerez MD 12-lead ECG Please see history of present illness Assessment & Plan 56-year-old woman, morbidly obese, with BROWN, known gallbladder disease, history of hepatic encephalopathy, has abdominal and flank pain, and elevated lipase and serum ammonia. #1 Acute pancreatitis, present on admission, evaluation and treatment initiated -May possibly be due gallstone pancreatitis, patient has cholelithiasis, and due to her habitus thorough ultrasound evaluation is difficult. The cramping she describes may also be gallstone colic. Patient denies any alcohol use. -Nothing by mouth -IV fluids lactated Ringer's -Pain control with IV Toradol, patient has allergies to morphine, tramadol, and in the emergency department received hydromorphone which she attributes her abrupt nausea and vomiting to, as well as her somnolence. -Recheck lipase in the morning, trend. -lipid panel -Advance diet as tolerated once lipase normalizes #2 Acute Electrolyte dyscrasia, present on admission, treatment initiated Patient is hypokalemic, hyperchloremia. Most likely due to vomiting and poor oral intake over the last day. Lactated Ringer's as above, recheck in the morning Reduce loss, treatment as below #3 Acute Prolonged QT interval, present on admission, treatment ongoing -Review of previous EKG showed normal QT interval QTC on admission was 496 ms. Avoid QTC prolongation medications. Recheck EKG before discharge, medication reconciliation to recognize medications patient takes regularly causing QTC prolongation. #4 Acute Nausea and vomiting, not present on admission, treatment initiated Patient claims this is due to opioid analgesics. -Avoid opioid analgesics. -Keep nothing by mouth -IVF, LR. -Antiemetics sparingly given QT prolongation #5 Hyperbilirubinemia This appears to be chronic and fluctuates review of previous laboratory results show. Will monitor while admitted. #6 Elevated serum ammonia consistent with history of hepatic encephalopathy, takes lactulose at home, does not seem encephalopathic at this time. Get nausea and vomiting under control so patient can take her a.m. lactulose, monitor for signs of encephalopathy. -Continue home medications #7 Chronic diabetes, non-insulin using, present on admission. Serum glucose was 101. States last time this was managed in the hospital her blood sugar dropped too low. Patient is nothing by mouth, will monitor fasting blood sugars. Avoid medications which may cause hypoglycemia #8 History of hepatic encephalopathy, BROWN, chronic controlled. Continue lactulose treatment while nothing by mouth Continue rifaximin treatment while nothing by mouth, #9 Morbid Obesity -A1c and lipids as above. -Nutrition consult in the hospital VTE prophylaxis with subcutaneous heparin GI prophylaxis: Not indicated Pain management with IV Toradol, pain not controlled Pain Evaluation: Pain not Controlled GI Prophylaxis: Proton Pump Inhibitor VTE Prophylaxis: Sub-Q Heparin (Unfractionated) Resuscitation Status: CPR: Attempt Resuscitation Attending Statement Patient seen and examined by myself and agree with the above plan. Remington Estrella DO Apr 23, 2016 04:30 Bertha Scott MD Apr 23, 2016 18:57
[2016-04-23] MEDS: Sodium Chloride LOK Flush 10 mL Syringe IVFLUSH SCH ×4 (04:51→23:41)
[2016-04-23] MEDS: Heparin 5,000 Unit/mL Inj SUBQ SCH ×3 (05:03→19:30)
[2016-04-23] MEDS ORDERED: Fluticasone 0.05% 15 Spray/2 Gm 16 Gm Nasal Spray NASAL PRN (05:15)
[2016-04-23] MEDS: Lactated Ringer's 1,000 ML IV SCH ×2 (05:24→15:53)
--- NOTE | 2016-04-23 05:58 | NUR ---
Admission Pt arrived on unit at 0345. Admitted for pancreatitis. Spouse with Pt. Pt vomiting upon arrival and with any movement. Oriented Pt to call light and she fell asleep. Oriented to call light, TV, bed controls and lighting so if she woke and needed assistance he could notify us. Pt is easy to rouse and answers question but drifts off during answers. Rec'd dilaudid in ED that added to the nausea and fatigue- per . Pt is NPO.
[2016-04-23 06:01] LABS: BASOPHILS % (AUTO) 0.3 % (0-3); EOSINOPHILS % (AUTO) 0.9 % (0-5); MONOCYTES % (AUTO) 7.9 % (4-12); Mean Corpuscular Hemoglobin 32.7 pg (27.0-35.0); Mean Corpuscular Volume 99.3 fL (81-100); NEUTROPHILS % (AUTO) 74.2 % (40-74); Platelet Count 58 bil/L (150-400)
--- NOTE | 2016-04-23 06:05 | NUR ---
Telemetry Placed Pt on [employer] [employer] [facility]
[2016-04-23] MEDS ORDERED: Albuterol 2.5 mg/3 mL Inhalation Solution NEB PRN (07:00)
--- NOTE | 2016-04-23 07:40 | DRSVH ---
PROCEDURE: CT ABDOMEN AND PELVIS WITH CONTRAST ([id number]) INDICATIONS: abdominal pain, elevated lipase TECHNIQUE: After the administration of intravenous contrast, 5 mm thick sections acquired from the diaphragm to the symphysis. 5 mm coronal and sagittal reformats were acquired. For radiation dose reduction, the following was used: automated exposure control, adjustment of mA and/or kV according to patient antonia dupree COMPARISON: [facility], CT, CT ABD PELVIS W CON, 11/24/2015, 2:09. FINDINGS: Image quality: Excellent. ABDOMEN: Lung bases: Lung bases are clear. Heart size is normal. Solid organs: Nodular contour of the liver in keeping with cirrhosis. The right and left portal vein s are not well seen which are either diminutive or potentially thrombosed (age-indeterminate). Gregorio us calcified gallstones are present. There is gallbladder wall thickening, technically age-indetermin ate. No pericholecystic fluid is seen. No biliary ductal dilatation identified. Pancreas unremarkable . Spleen mildly enlarged.. Numerous presumed portal venous collaterals are present. No adrenal nodule Kidneys grossly unremarkable except for a presumed subcentimeter right renal cyst too small to charac terize. Peritoneum and bowel: Bowel loops demonstrate normal wall thickness and caliber. No free fluid or a ir. Appendix not visualized and may be surgically absent. Rectum is decompressed and grossly unremar kable. There is mild hazy attenuation throughout the mesentery, technically nonspecific and age-indet erminate Nodes and vessels: No retroperitoneal or mesenteric adenopathy by size criteria. Aorta and inferior vena cava are normal in size. Miscellaneous: No ventral hernias. PELVIS: Genitourinary: Bladder wall thickness is normal. Miscellaneous: No inguinal hernias or adenopathy. There is mild pelvic ascites Bones: No suspicious bony lesions. No vertebral body compression fractures. IMPRESSION: Cholelithiasis, and gallbladder wall thickening. The age of this finding is technically nonspecific a nd could represent chronic versus acute cholecystitis, versus reactive wall thickening to long-standi ng liver disease among other possibilities. If clinically warranted, further assessment with ultrasou nd could be performed. Please correlate clinically and with LFTs. Cirrhosis of the liver. Mild splenomegaly. Left and right portal veins not well seen, potentially thrombosed (age-indeterminate) although these could alternatively be very diminutive in size. Mild ascites within the pelvis. Dictated by: Roland Matthews M.D. on 04/23/2016 at 7:31 Approved by: Roland Matthews M.D. on 04/23/2016 at 7:38
--- NOTE | 2016-04-23 08:05 | DRSVH ---
PROCEDURE: US ABDOMEN, LIMITED ([id number]) INDICATIONS: abn GB on CT, elev lipase TECHNIQUE: Real-time focused scanning was performed of the abdomen, with image documentation. COMPARISON: [facility], CT, CT ABD PELVIS W CON, 04/22/2016, 22:10. FINDINGS: There are multiple gallstones. Gallbladder wall thickness measures 3-4 mm. No sonographic M urphy sign, pericholecystic fluid. The iliac tree is not well-visualized sonographically. Suboptimal evaluation due to body habitus. The liver is coarsely echogenic IMPRESSION: Cholelithiasis and age indeterminate gallbladder wall thickening. No other sonographic criteria for a cute cholecystitis although recommend clinical correlation and LFTs to exclude acute cholecystitis. Echogenic liver suggesting diffuse hepatocellular disease/fatty infiltration Dictated by: Roland Matthews M.D. on 04/23/2016 at 7:59 Approved by: Roland Matthews M.D. on 04/23/2016 at 8:03
[2016-04-23] MEDS: Lactulose 20 Gm/30 mL 30 mL Syrup PO SCH ×3 (08:17→20:40)
[2016-04-23] MEDS ORDERED: Fluticasone-Salmererol 250-50 Inhaler INHALATION PRN (08:30)
--- NOTE | 2016-04-23 09:09 | PCM.PNMED ---
Subjective Date of Service Apr 23, 2016 Subjective Patient is seen and examined. Says her back pain is symmetric, in the flank area. She also has bilateral lower leg pain. Nausea and pain much improved this AM, asking to eat. States pain symmetric over flanks and lower legs Exam Vital Signs Vital Sign - Last Date Time Temp Pulse Resp B/P Pulse Ox O2 Delivery O2 Flow Rate FiO2 04/23/16 06:22 93 04/23/16 03:59 36.8 16 146/80 96 Room Air Intake and Output 04/22/16 04/22/16 04/23/16 Cumulative From/Thru 15:00 23:00 07:00 04/22/16 20:20 - 04/23/16 05:50 Intake Total 1000 ml 64 ml 1064 ml Output Total 500 ml 500 ml Balance 500 ml 64 ml 564 ml IV Total 1000 ml 64 ml 1064 ml Output Urine Total 500 ml 500 ml Exam Gen.: Sleeping in bed in no acute distress, morbidly obese HEENT: Normocephalic, atraumatic Heart: Regular rate and rhythm no S3-S4 murmurs Lungs anteriorly clear to auscultation Abdomen large morbidly obese abdomen, no abdominal distention, normal bowel sounds negative for tenderness to palpation. Pain under both ports sites of thoracic rib cage laterally Psych: Appears somewhat resigned Neuro no focal deficits IVs and Medications Medications Reviewed: Medications were reviewed in detail Lab and Diagnostics Result Diagram: 04/23/16 0543 04/23/16 0543 X-Rays, CTs and MRIs CT Abd / Pelvis Interpretation CONCLUSION: 1. Nodular liver contour suggestive of cirrhosis 2. Mild splenomegaly 3. Possible thrombosis of the right and left portal veins 4. Mild ascites 5. Gallstones and gallbladder wall thickening. The wall thickening could be reactive from diffuse liver disease; however, if there is clinical concern for cholecystitis, ultrasound is recommended Radiologist: Owen Jerez MD US Focused Biliary IMPRESSION: Limited visualization. Gallstones. Borderline gallbladded wall thickening measuring 3-4mm. Common duct not well visualized. Radiologist: Owen Jerez MD 12-lead ECG Please see history of present illness Assessment & Plan 56-year-old woman, morbidly obese, with BROWN, known gallbladder disease, history of hepatic encephalopathy, has abdominal and flank pain, and elevated lipase and serum ammonia. #1 Acute pancreatitis, present on admission, evaluation and treatment initiated -May possibly be due gallstone pancreatitis, patient has cholelithiasis, and due to her habitus thorough ultrasound evaluation is difficult. The cramping she describes may also be gallstone colic. Patient denies any alcohol use. -Nothing by mouth -IV fluids lactated Ringer's -Pain control with IV Toradol, patient has allergies to morphine, tramadol, and in the emergency department received hydromorphone which she attributes her abrupt nausea and vomiting to, as well as her somnolence. -Recheck lipase in the morning, trend. -lipid panel -Advance diet as tolerated once lipase normalizes. -- Acute pancreatitis is ruled out as lipase elevation is not large enough to call this pancreatitis. -- Biliary colic and cholelithiasis is still a possibility however she will have be transferred for higher level care due to her liver condition. Patient sees Dr. Lance at [facility]. For GI. An attempt was made to contact him today however no one returned phone call. She is likely not a surgical candidate given her liver complications. Interventional radiology said that her pleural effusions are not large enough for her To test for SBP. -- Consult a physical therapist to rule out musculoskeletal etiologies as her pain is very symmetric and present in both legs and both sides of her point blank -- We will have her on clear liquid diet for today #2 Acute Electrolyte dyscrasia, present on admission, treatment initiated Patient is hypokalemic, hyperchloremia. Most likely due to vomiting and poor oral intake over the last day. Lactated Ringer's as above, recheck in the morning Reduce loss, treatment as below #3 Acute Prolonged QT interval, present on admission, treatment ongoing -Review of previous EKG showed normal QT interval QTC on admission was 496 ms. Avoid QTC prolongation medications. Recheck EKG before discharge, medication reconciliation to recognize medications patient takes regularly causing QTC prolongation. #4 Acute Nausea and vomiting, not present on admission, treatment initiated Patient claims this is due to opioid analgesics. -Avoid opioid analgesics. -IVF, LR. -Antiemetics sparingly given QT prolongation #5 Hyperbilirubinemia This appears to be chronic and fluctuates review of previous laboratory results show. Will monitor while admitted. #6 Elevated serum ammonia consistent with history of hepatic encephalopathy, takes lactulose at home, does not seem encephalopathic at this time. Get nausea and vomiting under control so patient can take her a.m. lactulose, monitor for signs of encephalopathy. -Continue home medications #7 Chronic diabetes, non-insulin using, present on admission. Serum glucose was 101. States last time this was managed in the hospital her blood sugar dropped too low. Patient is nothing by mouth, will monitor fasting blood sugars. Avoid medications which may cause hypoglycemia #8 History of hepatic encephalopathy, BROWN, chronic controlled. Continue lactulose treatment while nothing by mouth Continue rifaximin treatment while nothing by mouth, #9 Morbid Obesity -A1c and lipids as above. -Nutrition consult in the hospital VTE prophylaxis with subcutaneous heparin GI prophylaxis: Not indicated Pain management with IV Toradol, pain not controlled GI Prophylaxis: Proton Pump Inhibitor VTE Prophylaxis: Sub-Q Heparin (Unfractionated) VTE Mechanical Devices: Intermittant Pneumatic CD Resuscitation Status: CPR: Attempt Resuscitation Greta Mendez DO Apr 23, 2016 09:09
[2016-04-23 12:30] LABS: INR 1.41 ratio
--- NOTE | 2016-04-23 13:33 | NUR ---
Evaluation completed. Please go to "Notes" then click on "Assessments and Notes" (bottom left corner of screen). Then select appropriate discipline tab on top of screen.
--- NOTE | 2016-04-23 15:56 | NUR ---
RD CONSULT. Received consult for nutrition education for patient with Class III obesity. Her A1c is pending, and if > 8.5, will certainly provide diabetes education. Education for obesity is better managed in the outpatient setting.
--- NOTE | 2016-04-23 16:28 | NUR ---
Social Work Note: Screen Note Data& Assessment: EMR reviewed. Lubna Marsh is a 56 year old female under observation for abdominal pain and pancreatitis. Pt has [employer] and [facility] insurance coverage. Pt sees Ernesto Armstrong MD for primary care. Pt lives in [place] with family and is independent at baseline. Pt is SBA in her room at this time. PT has cleared pt to return home when medically ready. No discharge needs identified at this time. SW to continue to follow if any needs arise. Plan: Anticipated discharge home via POV when medically ready. No discharge needs identified at this time. SW to continue to follow if any needs arise. SERGE Galloway
--- NOTE | 2016-04-23 18:27 | NUR ---
Diet patient changed to liquid diet this am. tolerating well. reports having 2 small BM's earlier today. able to get up to bathroom on own without difficulty. IV toradol has been effective for her pain. continue ot monitor.
--- NOTE | 2016-04-23 23:07 | NUR ---
Heparin Refusal While educating patient on what medications she would be receiving this evening, patient refused her heparin dose. Pt and state that due to her cirrhosis, and "already thin blood," that heparin should not be given. Will continue patient education, and continue to monitor. SCDs are being worn.
[2016-04-24 00:55] VITALS: BP 138/74; PULSE 97; RESP 18; O2SAT 97
[2016-04-24] MEDS: Lactated Ringer's 1,000 ML IV SCH (01:09)
[2016-04-24] MEDS: Heparin 5,000 Unit/mL Inj SUBQ SCH (03:30)
[2016-04-24 04:29] VITALS: PULSE 97; RESP 18; O2SAT 97
[2016-04-24 06:05] VITALS: BP 127/73; PULSE 97; RESP 16; O2SAT 95
[2016-04-24 07:54] LABS: BASOPHILS % (AUTO) 0.3 % (0-3); Mean Corpuscular Hemoglobin 32.3 pg (27.0-35.0); Mean Corpuscular Volume 99.7 fL (81-100); NEUTROPHILS % (AUTO) 46.4 % (40-74); Platelet Count 47 bil/L (150-400)
[2016-04-24] MEDS: Sodium Chloride LOK Flush 10 mL Syringe IVFLUSH SCH (08:30)
[2016-04-24] MEDS: Lactulose 20 Gm/30 mL 30 mL Syrup PO SCH (08:43)
[2016-04-24 09:07] VITALS: PULSE 99; RESP 18; O2SAT 98
[2016-04-24 13:16] VITALS: BP 131/78; PULSE 97; RESP 17; O2SAT 97
--- NOTE | 2016-04-24 13:28 | PCM.DIMED ---
Discharge Instructions Date of Service Apr 24, 2016 Dates of Hospitalization Apr 23, 2016 at 02:40 Discharge Diagnosis Discharge Diagnosis musculoskeletal pain, BROWN, peripheral neuropathy, DM II, Uterine Ca in remission, Test Results [facility] Diagnostic Imaging Department [place], [place] [id number] Patient Name: JOSEPH FRIAS MR#: [id number] Location: [facility] Ordering Phys: Javad Hope MD Date of Service: 04/22/16 2302 PROCEDURE: US ABDOMEN, LIMITED ([id number]) INDICATIONS: abn GB on CT, elev lipase TECHNIQUE: Real-time focused scanning was performed of the abdomen, with image documentation. COMPARISON: [facility], CT, CT ABD PELVIS W CON, 04/22/2016, 22:10. FINDINGS: There are multiple gallstones. Gallbladder wall thickness measures 3- 4 mm. No sonographic Hendrickson sign, pericholecystic fluid. The iliac tree is not well-visualized sonographically. Suboptimal evaluation due to body habitus. The liver is coarsely echogenic [facility] Diagnostic Imaging Department [place], [place] [id number] Patient Name: JOSEPH FRIAS MR#: [id number] Location: [facility] Ordering Phys: Javad Hope MD Date of Service: 04/22/164 PROCEDURE: CT ABDOMEN AND PELVIS WITH CONTRAST ([id number]) INDICATIONS: abdominal pain, elevated lipase TECHNIQUE: After the administration of intravenous contrast, 5 mm thick sections acquired from the diaphragm to the symphysis. 5 mm coronal and sagittal reformats were acquired. For radiation dose reduction, the following was used: automated exposure control, adjustment of mA and/or kV according to patient size. COMPARISON: [facility], CT, CT ABD PELVIS W CON, 11/24/2015, 2:09. FINDINGS: Image quality: Excellent. ABDOMEN: Lung bases: Lung bases are clear. Heart size is normal. Solid organs: Nodular contour of the liver in keeping with cirrhosis. The right and left portal veins are not well seen which are either diminutive or potentially thrombosed (age-indeterminate). Numerous calcified gallstones are present. There is gallbladder wall thickening, technically age-indeterminate. No pericholecystic fluid is seen. No biliary ductal dilatation identified. Pancreas unremarkable. Spleen mildly enlarged.. Numerous presumed portal venous collaterals are present. No adrenal nodule Kidneys grossly unremarkable except for a presumed subcentimeter right renal cyst too small to characterize. Peritoneum and bowel: Bowel loops demonstrate normal wall thickness and caliber. No free fluid or air. Appendix not visualized and may be surgically absent. Rectum is decompressed and grossly unremarkable. There is mild hazy attenuation throughout the mesentery, technically nonspecific and age- indeterminate Nodes and vessels: No retroperitoneal or mesenteric adenopathy by size criteria. Aorta and inferior vena cava are normal in size. Miscellaneous: No ventral hernias. PELVIS: Genitourinary: Bladder wall thickness is normal. Miscellaneous: No inguinal hernias or adenopathy. There is mild pelvic ascites Bones: No suspicious bony lesions. No vertebral body compression fractures. IMPRESSION: Cholelithiasis, and gallbladder wall thickening. The age of this finding is technically nonspecific and could represent chronic versus acute cholecystitis, versus reactive wall thickening to long-standing liver disease among other possibilities. If clinically warranted, further assessment with ultrasound could be performed. Please correlate clinically and with LFTs. Cirrhosis of the liver. Mild splenomegaly. Left and right portal veins not well seen, potentially thrombosed (age- indeterminate) although these could alternatively be very diminutive in size. Mild ascites within the pelvis. Dictated by: Roland Matthews M.D. on 04/23/2016 at 7:31 Approved by: Roland Matthews M.D. on 04/23/2016 at 7:38 IMPRESSION: Cholelithiasis and age indeterminate gallbladder wall thickening. No other sonographic criteria for acute cholecystitis although recommend clinical correlation and LFTs to exclude acute cholecystitis. Echogenic liver suggesting diffuse hepatocellular disease/fatty infiltration Dictated by: Roland Matthews M.D. on 04/23/2016 at 7:59 Approved by: Roland Matthews M.D. on 04/23/2016 at 8:03 Diet Low fat, Low Sodium, Heart Healthy, Diabetic Activity No restrictions Call your provider Fever or Chills, Shortness of breath, Bleeding, Chest pain, Vomitting, Excessive diarrhea, Weakness (unilateral), Other Patient Instructions Follow-up plan Please see your PCP in [address] Lance as scheduled before Greta Mendez DO Apr 24, 2016 13:28
--- NOTE | 2016-04-24 13:29 | PCM.DC.MED ---
Discharge Summary Date of Service Apr 24, 2016 Dates of Hospitalization Date of Hospital Admission Apr 23, 2016 at 02:40 Date of Discharge: Apr 24, 2016 Providers: Admitting Physician: Bertha Scott MD Primary Care Physician: Ernesto Armstrong MD Attending Physician: Bertha Sctot MD Diagnosis at Time of Discharge Diagnosis at Time of Discharge musculoskeletal pain, WILLARD, peripheral neuropathy, DM II, Uterine Ca in remission, Procedures XRay, CTs & MRIs CT Abd / Pelvis Interpretation CONCLUSION: 1. Nodular liver contour suggestive of cirrhosis 2. Mild splenomegaly 3. Possible thrombosis of the right and left portal veins 4. Mild ascites 5. Gallstones and gallbladder wall thickening. The wall thickening could be reactive from diffuse liver disease; however, if there is clinical concern for cholecystitis, ultrasound is recommended Radiologist: Owen Jerez MD US Focused Biliary IMPRESSION: Limited visualization. Gallstones. Borderline gallbladded wall thickening measuring 3-4mm. Common duct not well visualized. Radiologist: Owen Jerez MD ECG 12 Lead Please see history of present illness Brief History Patient is a 56-year-old morbidly obese woman with history of WILLARD, peripheral neuropathy, gallbladder disease, diabetes mellitus who presented to the emergency department complaining of bilateral flank pain starting today, and abdominal cramping for the last couple of days. Prior to coming in she took 5 mg of cyclobenzaprine with no relief. She claims that she has had abdominal cramping before and for several days but the bilateral flank pain is now in the inciting event for presentation to the ER without any resolution after taking medication. The cramping in her abdomen is described as bilateral upper quadrants coming and going. In the emergency department she had a white blood cell count of 3.2, hemoglobin 12.2, presents of 51, sodium was 141, potassium 3.4, chloride 111, BUN 3, creatinine 0.54, blood glucose 101. Bicarbonate 20. Lipase 130, ammonia 98, AST mildly elevated at 55, ALT was normal. Urinalysis: Dark yellow, pH 5.5, specific gravity 1.02, no protein, no glucose, no ketones, trace occult blood, no bilirubin and nitrites, negative leukocyte esterase, no RBCs, no WBCs, few epithelial cells. She received a CT abdominal/pelvis in the ER, night read: Liver contour suggesting cirrhosis, mild splenomegaly, possible thrombosis of right and left portal veins, mild ascites, gallstones and gallbladder wall thickening. Ultrasound was performed to assess gallbladder wall thickening: Limited visualization, borderline gallbladder wall thickening measuring 3-4 mm, unable to visualize common bile duct well. EKG performed in the department showed a QTC of 496, normal sinus, normal rate, normal axis, abnormal R-wave progression. No signs of acute ischemia or infarction Patient denied any lightheadedness, dizziness, chest pain, shortness of breath other than her normal asthma symptoms, she stated some cramping in her hands and upper extremities, no diarrhea, no constipation, no melena, no hematochezia , no recent alcohol use, no fevers, chills, cold sweats, tremors, she does have swelling in her lower extremities which she does not describe his new" occurs occasionally." No dysuria, no increase urination frequency. She was prepared for discharge from the emergency department when she vomited, ER nurse reported, roughly 500 mL of stomach contents. There was no blood present, at which point based on continued abdominal pain, vomiting refractory to IV antiemetics, and elevated lipase, patient agreed to be admitted for observation. Hospital Course 56-year-old woman, morbidly obese, with WILLARD, known gallbladder disease, history of hepatic encephalopathy, has abdominal and flank pain, and elevated lipase and serum ammonia. #1 Acute pancreatitis, present on admission, evaluation and treatment initiated : Because of the findings on the CT scan patient was initially thought to have acute pancreatitis. However lipase is not 3 times normal. Pancreatitis and ruled out. Based on her CT scan there is concern for cholelithiasis and biliary colic however she has not been very good surgical candidate. states that Dr. Lance(we tried contacting him however we are unable to get a phone call back) told them she would not be a good surgical candidate. Lipase normalized next morning. Diet is advanced and on the day of discharge she is eating low-fat diet and tolerating it well. Slight elevation in her liver enzymes as well as lipase is thought to be due to her Willard #2 Acute Electrolyte dyscrasia, present on admission, treatment initiated. Thought to be due to her nausea and vomiting. Patient is hypokalemic, hyperchloremia. Patient electrolytes are repleted as needed #3 Acute Prolonged QT interval, present on admission: We will differ this to PCP #4 Acute Nausea and vomiting, not present on admission, treatment initiated: Thought to be due to her Willard #5 Hyperbilirubinemia This appears to be chronic and fluctuates review of previous laboratory results show. Will monitor while admitted. Again she is not thought to be a suitable candidate she will have to follow up as an outpatient with Dr. Lance #6 Elevated serum ammonia consistent with history of hepatic encephalopathy, takes lactulose at home, does not seem encephalopathic at this time. Get nausea and vomiting under control so patient can take her a.m. lactulose, monitor for signs of encephalopathy. Her home medications are continued #7 Chronic diabetes, non-insulin using, present on admission: Continue to monitor daily blood glucose #8 History of hepatic encephalopathy, WILLARD, chronic controlled. Her home medications are continued #9 Morbid Obesity -A1c and lipids as above. WNL Exam Vital Signs (Last) Date Time Temp Pulse Resp B/P Pulse Ox O2 Delivery O2 Flow Rate FiO2 04/24/16 13:16 36.8 97 17 131/78 97 Room Air Exam Gen.: Morbidly obese, laying in bed HEENT: Normocephalic, atraumatic Heart: Regular rate and rhythm no S3-S4 sounds Lungs: Clear to auscultation no crackles or wheezes Abdomen: Negative for tenderness to palpation, normal bowel sounds soft Psych: Negative for anxiety Neuro no focal deficits Test 04/22/16 20:45 04/22/16 22:05 04/22/16 22:40 04/23/16 05:43 Magnesium Level 1.9mg/dL (1.6-2.6) Hold Olivo Top Tube Received (Received) Ammonia 98ug/dL (18-53) Urine Color Dark yellow (YELLOW) Urine Appearance Clear (CLEAR,HAZY) Urine pH 5.5 (5.0-8.0) Urine Specific [place] 1.020 (1.003-1.035) Urine Protein Negativemg/dL (NEG,TRACE) Urine Glucose (UA) Negativemg/dL (NEGATIVE) Urine Ketones Negativemg/dL (NEGATIVE) Urine Occult Blood Trace (NEGATIVE) Urine Nitrite Negative (NEGATIVE) Urine Bilirubin Negative (NEGATIVE) Urine Urobilinogen Normalmg/dL (NORMAL) Urine Leukocyte Esterase Negative (NEGATIVE) Urine RBC 0-2/hpf (0-2) Urine WBC 0-5/hpf (0-5) Urine Epithelial Cells Few/hpf (NONE-MOD) Urine Crystals None seen (NONE SEEN) Urine Bacteria None/hpf (NONE-FEW) Urine Hyaline Casts None/lpf (NONE) Urine Granular Casts None seen (NONE SEEN) Urine Waxy Casts None seen (NONE SEEN) Urine Red Blood Cell Casts None seen (NONE SEEN) Urine White Blood Cell Casts None seen (NONE SEEN) Urine Mucus None seen (None Seen) Urine Trichomonas None seen (NONE SEEN) Urine Yeast None (NONE SEEN) Urine Culture Reflexed Not indicated Hemoglobin A1c 4.4% (4.8-5.6) Test 04/23/16 11:43 04/24/16 06:00 04/24/16 06:30 Prothrombin Time 15.2sec (8.1-12.5) Prothromb Time International Ratio 1.41ratio Activated Partial Thromboplast Time 37.1sec (22.8-33.0) Triglycerides Level 78mg/dL (0-149) Cholesterol Level 133mg/dL (100-199) LDL Cholesterol, Calculated 73.400mg/dL (0-99) VLDL Cholesterol 15.600mg/dL HDL Cholesterol 44mg/dL (>39) Cholesterol/HDL Ratio 3.02 (0.0-4.4) White Blood Count 3.0th/mm3 (3.8-10.1) Red Blood Count 3.37mil/mm3 (3.90-5.20) Hemoglobin 10.9g/dL (12.0-15.6) Hematocrit 33.6% (35.0-46.0) Mean Corpuscular Volume 99.7fL (81-100) Mean Corpuscular Hemoglobin 32.3pg (27.0-35.0) Mean Corpuscular Hemoglobin Concent 32.4% (32.0-37.0) Red Cell Distribution Width 15.7% (12.3-15.4) Platelet Count 47bil/L (150-400) Neutrophils (%) (Auto) 46.4% (40-74) Lymphocytes (%) (Auto) 36.0% (14-46) Monocytes (%) (Auto) 12.0% (4-12) Eosinophils (%) (Auto) 5.0% (0-5) Basophils (%) (Auto) 0.3% (0-3) Sodium Level 141mEq/L (134-144) Potassium Level 3.6mEq/L (3.5-5.2) Chloride Level 110mEq/L (97-108) Carbon Dioxide Level 21mmol/L (18-29) Blood Urea Nitrogen 4mg/dL (6-24) Creatinine 0.41mg/dL (0.57-1.00) Estimat Glomerular Filtration Rate 228mL/min (>59) Glucose Level 78mg/dL (60-99) Calcium Level 7.0mg/dL (8.5-10.1) Total Bilirubin 3.4mg/dL (0.0-1.2) Aspartate Amino Transf (AST/SGOT) 55U/L (0-50) Alanine Aminotransferase (ALT/SGPT) 20U/L (0-32) Alkaline Phosphatase 105U/L (25-150) Total Protein 5.2g/dL (6.4-8.4) Albumin 1.9g/dL (3.4-5.0) Lipase 73U/L (13-60) Discharge Medications Discharge Medications Calcium Carbonate (Calcium) 600 Mg Tablet 600 MG PO BID (Reported) Lactulose (Lactulose) 10 Gm/15 Ml Solution 10 GM PO TID (Reported) Loratadine (Claritin) 10 Mg Capsule 10 MG PO DAILY (Reported) Magnesium Oxide (Magnesium) 250 Mg Tablet 250 MG PO DAILY (Reported) Multivitamin/Iron/Folic Acid (Cerovite Advanced Form Tab) 1 Each Tablet 1 EACH PO DAILY (Reported) Potassium Chloride (Potassium Chloride) 10 Meq Tab.er.prt 10 MEQ PO BID ( Reported) Rifaximin (Xifaxan) 550 Mg Tablet 550 MG PO BID (Reported) As needed Albuterol HFA (Proair HFA) 8.5 Gm Hfa.aer.ad 2 PUFFS IH PRN For Shortness of Breath (Reported) Budesonide/Formoterol 160-4.5 mcg Inh (Symbicort 160-4.5 mcg Inh) 120 Puff Inhaler 1 PUFF INHALATION BID PRN PRN For Shortness of Breath (Reported) Cyclobenzaprine (Cyclobenzaprine) 5 Mg Tablet 5 MG PO TID PRN PRN Spasm ( Reported) Fluticasone Propionate (Fluticasone Propionate Nasal) 16 Gm [place].susp 1 SPRAY NASAL PRN allergies (Reported) Metoclopramide (Metoclopramide) 10 Mg Tablet 10 MG PO QID PRN PRN For Nausea ( Reported) Omeprazole (Omeprazole) 20 Mg Capsule.dr 20 MG PO DAILY PRN PRN For Dyspepsia or Heartburn (Reported) Ondansetron ODT (Ondansetron ODT) 8 Mg Tab.rapdis 8 MG PO QID PRN PRN For Nausea Prescribed by: TYREE SANTANA MD Followup Plan Follow-up plan Please see your PCP in [address] Lance as scheduled before Discharge Diet: Low fat, Low Sodium, Heart Healthy, Diabetic Discharge Activity: No restrictions Greta Mendez DO Apr 24, 2016 13:29 Albuterol HFA (Proair HFA) 8.5 Gm Hfa.aer.ad 2 PUFFS IH PRN For Shortness of Breath (Reported) Budesonide/Formoterol 160-4.5 mcg Inh (Symbicort 160-4.5 mcg Inh) 120 Puff Inhaler 1 PUFF INHALATION BID PRN PRN For Shortness of Breath (Reported) Cyclobenzaprine (Cyclobenzaprine) 5 Mg Tablet 5 MG PO TID PRN PRN Spasm ( Reported) Fluticasone Propionate (Fluticasone Propionate Nasal) 16 Gm [place].susp 1 SPRAY NASAL PRN allergies (Reported) Metoclopramide (Metoclopramide) 10 Mg Tablet 10 MG PO QID PRN PRN For Nausea ( Reported) Omeprazole (Omeprazole) 20 Mg Capsule.dr 20 MG PO DAILY PRN PRN For Dyspepsia or Heartburn (Reported) Ondansetron ODT (Ondansetron ODT) 8 Mg Tab.rapdis 8 MG PO QID PRN PRN For Nausea Prescribed by: TYREE SANTANA MD Followup Plan Follow-up plan Please see your PCP in [address] Lance as scheduled before Discharge Diet: Low fat, Low Sodium, Heart Healthy, Diabetic Discharge Activity: No restrictions Greta Mendez DO Apr 24, 2016 13:29
--- NOTE | 2016-04-24 13:42 | NUR ---
Social Work Note: Discharge Data& Assessment: Per pt is medically ready to discharge home via POV. Lubna Marsh is a 56 year old female under observation for abdominal pain and pancreatitis. Per pt is medially improved and ready for discharge. Pt has been cleared by PT to return home with outpt PT. SW met with pt and pt at bedside to confirm discharge plan and assess for any unmet needs. Pt and pt deny any other needs. Pt transporting pt home today. No other discharge needs identified. All updated and agreeable to plan. Plan: Per pt is medically ready to discharge home via POV. Pt and pt deny any other needs. No other discharge needs identified. All updated and agreeable to plan. SERGE Galloway
--- NOTE | 2016-04-24 14:15 | NUR ---
Discharge discharge instructions reviewed; medications, diagnosis and follow-up care recommendations. patient stated that she already has her follow-up appointments scheduled. advised that if symptoms worsen, increased pain fever chills to seek medical attentions. she verbalized understanding and agreed with plan of care.
== END 2016-04-24 14:11 | disposition home or self-care (01) ==
LOC: SED 20:20 → OSC 04-23 02:40
PROVIDERS: ADMIT Specialist; ATTEND Specialist
DX: R10.11 Right upper quadrant pain (principal); R10.12 Left upper quadrant pain; K75.81 Nonalcoholic steatohepatitis (NASH); E11.42 Type 2 diabetes mellitus with diabetic polyneuropathy; K72.10 Chronic hepatic failure without coma; E87.8 Other disorders of electrolyte and fluid balance, not elsewhere classified; E87.6 Hypokalemia; R11.2 Nausea with vomiting, unspecified; J45.909 Unspecified asthma, uncomplicated; K21.9 Gastro-esophageal reflux disease without esophagitis; Z85.42 Personal history of malignant neoplasm of other parts of uterus; Z87.891 Personal history of nicotine dependence; I45.81 Long QT syndrome; E80.6 Other disorders of bilirubin metabolism; E66.01 Morbid (severe) obesity due to excess calories; Z68.43 Body mass index [BMI] 50.0-59.9, adult; K80.20 Calculus of gallbladder without cholecystitis without obstruction
CPT/HCPCS: 36415; 74177; 76705; 80053; 80061; 81000; 82140; 83036; 83690; 83735; 85025; 85610; 85730; 93005; 94664; 94799; 96361; 96374; 96375; 96376; 97161; 99285; G0378; J1170; J1644; J2405; J2550; J2765; J7030; J7120; J7613; Q9967

== ENCOUNTER 2016-06-16 00:06 | Emergency (ER) | payer OTHER ==
[~2016-06-16] VITALS: Ht 152.4 cm; Wt 113.6 kg
[~2016-06-16 00:06] MED LIST changes: +ONDA8TAB10 PO; -OSLT75C PO; +RIFA550T3 PO
[2016-06-16 00:13] VITALS: BP 152/94; PULSE 112; RESP 22; O2SAT 96
--- NOTE | 2016-06-16 00:35 | ED.REPORT ---
HPI-General Illness Date of Service June 16, 2016 ED Provider: Blayne Calabrese MD A 56 year old female with a medical history including BROWN, diabetes, peripheral neuropathy, gallbladder disease, and uterine cancer presents to the ED with bilateral hand and leg cramping onset this evening. The patient denies fever, recent falls, or other symptoms. She has had similar symptoms in the past. The patient did more walking than usual today. Nursing Notes Stated Complaint: LEG/ HAND CRAMPS Chief Complaint: General Complaint Nursing Notes Reviewed: Yes ([employer] not reconciled) Allergies: Coded Allergies: morphine (Verified Allergy, Severe, Nausea,Vomiting, 06/16/16) prednisone (Verified Allergy, Unknown, 06/16/16) tramadol (Verified Adverse Reaction, Intermediate, Dizziness, 06/16/16) Scheduled Calcium Carbonate (Calcium) 600 Mg Tablet 600 MG PO BID Lactulose (Lactulose) 10 Gm/15 Ml Solution 10 GM PO TID Loratadine (Claritin) 10 Mg Capsule 10 MG PO DAILY Magnesium Oxide (Magnesium) 250 Mg Tablet 250 MG PO DAILY Multivitamin/Iron/Folic Acid (Cerovite Advanced Form Tab) 1 Each Tablet 1 EACH PO DAILY Potassium Chloride (Potassium Chloride) 10 Meq Tab.er.prt 10 MEQ PO BID Rifaximin (Xifaxan) 550 Mg Tablet 550 MG PO BID Scheduled PRN Albuterol HFA (Proair HFA) 8.5 Gm Hfa.aer.ad 2 PUFFS IH PRN For Shortness of Breath Budesonide/Formoterol 160-4.5 mcg Inh (Symbicort 160-4.5 mcg Inh) 120 Puff Inhaler 1 PUFF INHALATION BID PRN PRN For Shortness of Breath Cyclobenzaprine (Cyclobenzaprine) 5 Mg Tablet 5 MG PO TID PRN PRN Spasm Fluticasone Propionate (Fluticasone Propionate Nasal) 16 Gm [place].susp 1 SPRAY NASAL PRN allergies Metoclopramide (Metoclopramide) 10 Mg Tablet 10 MG PO QID PRN PRN For Nausea Omeprazole (Omeprazole) 20 Mg Capsule.dr 20 MG PO DAILY PRN PRN For Dyspepsia or Heartburn Ondansetron ODT (Ondansetron ODT) 8 Mg Tab.rapdis 8 MG PO QID PRN PRN For Nausea oxyCODONE (oxyCODONE) 5 Mg Tablet 5 MG PO Q6H PRN PRN For Pain General Time Seen by MD: 00:31 Chief Complaint Other (Bilateral Hand and Leg Cramping) Hx Obtained From: Patient Arrived By: Walk-in Sudden in Onset?: Yes Onset Occurred: 1 - 4 hours ago Symptom Duration: Since onset Location: : Hand left: Hand right: Leg left: Leg right Quality: Cramping, Painful Severity: Current: Moderate Severity: Maximum: Moderate Pertinent Negative: Relieved by nothing Context Related History: Reports Diabetes mellitus Recent Healthcare: No recent doctor visit Similar Sx Previous: Yes Past Medical History Past Medical History Non-alcoholic liver cirrhosis (BROWN) Gallbladder disease Uterine cancer Peripheral neuropathy Osteoporosis Asthma Reports: Diabetes mellitus Past Surgical History Thumb surgery Reports: Appendectomy, Hysterectomy Smoking History Former Smoker Social History Alcohol Use: Denies alcohol use Drug Use: Denies drug use Other Social History: Good social support, Local resident Ambulatory Status Independent Review of Systems Full Review of Systems Constitutional: Denies: Fever Respiratory: Denies: Non-productive cough, Shortness of breath GI: Denies: Diarrhea, Vomiting Musculoskeletal: Reports: Extremity pain (Bilateral hand and leg cramping) Complete sys rev & neg: except as marked. Physical Exam Vital Signs Vital Signs Date Time Temp Pulse Resp B/P Pulse Ox O2 Delivery O2 Flow Rate FiO2 06/16/16 00:13 36.6 112 22 152/94 96 Room Air Initial VS: Reviewed, Vital signs abnormal (HR 112) Head / Eyes: Atraumatic, Normocephalic ENT: Conjunctiva normal, No scleral icterus Neck: Supple, Full range of motion Skin: Warm, Dry Neurologic: Alert, Oriented, Nonfocal Psychiatric: Mood/affect normal, Behavior normal, Normal thought content General/Constitutional: Awake, Alert Appearance / Presentation: Positive: Obese Fatigued Wrist / Hand: Atraumatic, Inspection NL, No swelling, No erythema, Neurologic intact, Vascular intact No signs of joint effusion Lower Extremity / Pelvis / MS: Atraumatic, Full range of motion, No erythema, Neurologic intact, Vascular intact Trace edema bilateral legs Re-Eval/Medical Decision Med Decision/Clinical Course This is a 56-year-old female osteoarthritis who presents complaining of bilateral hand and foot cramping. She has had this pain intermittently multiple times in the past. Usually she gets relief with her home medications, this time she did not-she suspects it is because she was more active than usual today and a precipitated the pain, but there has been no specific trauma. She denies fevers chills swelling or other symptoms reports aside from the severity and persistence of the pain, the symptoms are otherwise typical. On exam she is obese, no upper extremity, there is no erythema, warmth, effusion , or findings of a septic joint. There is intact range of motion. She received a dose of oxycodone without Tylenol, and then supplement dose of Toradol-is much improved. I am not finding indication for laboratory studies. Patient is comfortable and is being discharged in stable condition. Source of Hx: Old records Time of Eval: 02:00 Patient Status: Condition improved Re-Evaluation/Progress Note: Patient's pain has improved but not completely resolved. Discussed with patient diagnosis and plan for discharge after additional pain management. Follow-up and return to the ER instructions given. Patient agrees with plan for care and all questions were addressed. Time of Eval: 02:48 Patient Status: Condition improved Re-Evaluation/Progress Note: Patient's pain has significantly improved and she is ready to go home. Differential Diagnosis: Negative: Abdominal pain, Acute coronary syndrome, Drug dependence, G-tube repair/replacement, Hematoma, Laceration, Pneumonia, Seizure disorder Counseled Regarding: Diagnosis, Need for follow-up, When/why to return to ED Discharge & Departure Primary Impression: Joint pain Joint pain location: unspecified Qualified Code: M25.50 - Pain in unspecified joint Disposition: Home Discharge Condition All VS Reviewed: Yes Condition: Improved Additional Instructions: 1. You describe an acute exacerbation of your chronic, recurrent joint pains and spasm. 2. You received a dose of a medication that does contain a narcotic. Causes some drowsiness. No driving. 3. I have written for #10 tablets of oxycodone for additional pain management. Again, this is a narcotic, use sparingly. His medication causes some drowsiness. 4. Follow-up with yourregular provider. Referrals: Ernesto Armstrong MD (PCP) Scribe Attestation Portions of this note were transcribed by Anh Singer. I, Dr. Calabrese, personally performed the history, physical exam, and medical decision-making; I reviewed and confirmed the accuracy of the information in the transcribed note. Signed by: Zechariah Lorenz, 06/16/2016, 02:50 copies to: Ernesto Armstrong MD, Matthew F MD June 16, 2016 00:35 ANH SINGER June 16, 2016 00:42
[2016-06-16] MEDS ORDERED: OXYC5TAB72 PO (02:18)
[2016-06-16 03:23] VITALS: BP 135/83; PULSE 98; RESP 18; O2SAT 98
== END 2016-06-16 03:10 | disposition home or self-care (01) ==
LOC: SED 00:06
DX: M25.541 Pain in joints of right hand (principal); M25.542 Pain in joints of left hand; M25.571 Pain in right ankle and joints of right foot; M25.572 Pain in left ankle and joints of left foot; E11.40 Type 2 diabetes mellitus with diabetic neuropathy, unspecified; Z79.891 Long term (current) use of opiate analgesic; Z90.710 Acquired absence of both cervix and uterus; Z79.899 Other long term (current) drug therapy; Z88.5 Allergy status to narcotic agent; Z88.8 Allergy status to other drugs, medicaments and biological substances
CPT/HCPCS: 96372; 99283; J1885

== ENCOUNTER 2016-07-31 00:06 | Emergency (ER) | payer OTHER ==
[~2016-07-31] VITALS: Ht 152.4 cm; Wt 115.9 kg
[~2016-07-31 00:06] MED LIST changes: +OXYC5TAB72 PO
[2016-07-31 00:10] VITALS: BP 136/84; PULSE 111; RESP 24; O2SAT 99
--- NOTE | 2016-07-31 00:56 | ED.REPORT ---
HPI-General Illness Date of Service Jul 31, 2016 ED Provider: Fernando Robertson MD Pt is a 56 y/o female w/ a hx of chronic musculoskeletal cramping of unknown etiology, peripheral neuropathy, DM, presenting to the ED w/ her c/o bilateral upper hand and lower extremity cramping pain which is chronic and worse today. This has been going on for quite some time and there has been no definitive diagnosis. She has been taking 10 mg "of a muscle relaxer" without much relief. She does not take pain medications. She was seen for this in the ED last month and her pain was relieved by Toradol and Oxycodone. She has no other complaints besides the cramping. Nursing Notes Stated Complaint: LEG AND HAND CRAMPS Chief Complaint: General Complaint Nursing Notes Reviewed: Yes Allergies: Coded Allergies: morphine (Verified Allergy, Severe, Nausea,Vomiting, 06/16/16) prednisone (Verified Allergy, Unknown, 06/16/16) tramadol (Verified Adverse Reaction, Intermediate, Dizziness, 06/16/16) Scheduled Calcium Carbonate (Calcium) 600 Mg Tablet 600 MG PO BID Lactulose (Lactulose) 10 Gm/15 Ml Solution 10 GM PO TID Loratadine (Claritin) 10 Mg Capsule 10 MG PO DAILY Magnesium Oxide (Magnesium) 250 Mg Tablet 250 MG PO DAILY Multivitamin/Iron/Folic Acid (Cerovite Advanced Form Tab) 1 Each Tablet 1 EACH PO DAILY Potassium Chloride (Potassium Chloride) 10 Meq Tab.er.prt 10 MEQ PO BID Rifaximin (Xifaxan) 550 Mg Tablet 550 MG PO BID Scheduled PRN Albuterol HFA (Proair HFA) 8.5 Gm Hfa.aer.ad 2 PUFFS IH PRN For Shortness of Breath Budesonide/Formoterol 160-4.5 mcg Inh (Symbicort 160-4.5 mcg Inh) 120 Puff Inhaler 1 PUFF INHALATION BID PRN PRN For Shortness of Breath Cyclobenzaprine (Cyclobenzaprine) 5 Mg Tablet 5 MG PO TID PRN PRN Spasm Fluticasone Propionate (Fluticasone Propionate Nasal) 16 Gm [place].susp 1 SPRAY NASAL PRN allergies Metoclopramide (Metoclopramide) 10 Mg Tablet 10 MG PO QID PRN PRN For Nausea Omeprazole (Omeprazole) 20 Mg Capsule.dr 20 MG PO DAILY PRN PRN For Dyspepsia or Heartburn Ondansetron ODT (Ondansetron ODT) 8 Mg Tab.rapdis 8 MG PO QID PRN PRN For Nausea oxyCODONE (oxyCODONE) 5 Mg Tablet 5 MG PO Q6H PRN PRN For Pain General Time Seen by MD: 00:53 Chief Complaint Other (cramps) Hx Obtained From: Patient, Spouse Arrived By: Walk-in Sudden in Onset?: No Onset Occurred: 1 - 4 hours ago Symptom Duration: Since onset Location: : Hand left: Hand right: Leg left: Leg right Quality: Painful Severity: Current: Mild Severity: Maximum: Moderate Recent Healthcare: Recent doctor visit, Recent testing, Previous diagnosis, Prior workup Similar Sx Previous: Yes Past Medical History Past Medical History Multiple visits for chronic bilateral hand and lower leg cramping - uncertain etiology Non-alcoholic liver cirrhosis (BROWN) Gallbladder disease Uterine cancer Peripheral neuropathy Osteoporosis Asthma Reports: Diabetes mellitus Past Surgical History Thumb surgery Reports: Appendectomy, Hysterectomy Smoking History Former Smoker Social History Alcohol Use: Denies alcohol use Drug Use: Denies drug use Other Social History: Good social support, Local resident Ambulatory Status Independent Review of Systems Full Review of Systems Constitutional: Denies: Chills, Fever Respiratory: Denies: Non-productive cough, Shortness of breath Cardiovascular: Denies: Chest pain, Dyspnea on exertion GI: Denies: Abdominal pain, Nausea, Vomiting Musculoskeletal: Reports: Extremity pain, Denies: Extremity swelling Complete sys rev & neg: except as marked. Physical Exam Vital Signs Vital Signs Date Time Temp Pulse Resp B/P Pulse Ox O2 Delivery O2 Flow Rate FiO2 07/31/16 02:09 101 20 134/86 98 Room Air 07/31/16 00:10 37.0 111 24 136/84 99 Room Air Initial VS: Reviewed, Vital signs abnormal Head / Eyes: Atraumatic, Normocephalic, PERRL ENT: Mucous membranes moist, Conjunctiva normal, No scleral icterus Neck: Supple, Full range of motion Respiratory: Breath sounds normal, Clear to auscultation, No respiratory distress Cardiovascular: Regular rate & rhythm, Heart sounds normal, Intact distal pulses Abdomen / GI: Soft, Non-tender Skin: Warm, Dry, No cyanosis Neurologic: Alert, Oriented, Nonfocal Psychiatric: Mood/affect normal, Behavior normal, Normal thought content General/Constitutional: Awake, Alert, No acute distress, Well appearing, Cooperative, Not toxic appearing Upper Extremities Upper Extremity / MS: Atraumatic, Inspection NL, Full range of motion, No swelling, Non-tender, No snuffbox tenderness, No erythema, No deformity, Neurologic intact, Vascular intact, No ligamentous injury, Tendon function NL, No compartment syndrome, No circumferential injury, No clubbing/cyanosis, No edema Lower Extremity / Pelvis / MS: Atraumatic, Inspection NL, Full range of motion , No swelling, Non-tender, No erythema, No deformity, Neurologic intact, Vascular intact, No ligamentous injury, Tendon function NL, No compartment syndrome, No circumferential injury, No edema Re-Eval/Medical Decision Med Decision/Clinical Course Pt is a 56 y/o female w/ a hx of chronic musculoskeletal cramping of unknown etiology, peripheral neuropathy, DM, presenting to the ED w/ her c/o bilateral upper hand and lower extremity cramping pain which is chronic and worse today. Here in the emergency department the patient is afebrile stable vital signs and examination as above. Patient has been extensively worked up in the past without any clear cause of her symptoms. I suspect that this is related to her peripheral neuropathy. Previous evaluations did not demonstrate any other cause or significant electrolyte abnormality. I do not feel that repeat testing today will be of much diagnostic utility. Patient was treated with Valium here in the emergency department and reported significant symptomatic improvement. I feel that she is appropriate for discharge and she may further address this chronic issue with her primary care physician. Prior to discharge follow-up and return precautions were reviewed in detail with the patient who verbalized understanding and agreement with the plan. The patient was discharged in stable condition. Time of Eval: 01:44 Re-Evaluation/Progress Note: Pt rechecked. Informed pt of plan for treatment. Pt understands and agrees with plan for treatment. F/U instructions and RTER warnings given. All questions addressed. Counseled Regarding: Diagnosis, Need for follow-up, When/why to return to ED Discharge & Departure Primary Impression: Cramping of hands Additional Impressions: Bilateral leg cramps Peripheral neuropathy Peripheral neuropathy type: polyneuropathy, unspecified Qualified Code: G62.9 - Polyneuropathy, unspecified Disposition: Home Discharge Condition All VS Reviewed: Yes Condition: Stable Patient Instructions: Muscle Cramp (ED) Additional Instructions: Thank you for seeking care at the emergency room. Our primary goal today in the ED was to evaluate you for any life-threatening conditions. Your evaluation was reassuring. We gave you a dose of Valium here in the ED today. In the next 24 hours, do not take any narcotic pain medications, muscle relaxers, no alcohol, do not drive. I think the best course of action is to have this problem fully worked up with your primary care doctor as an outpatient. Please call their office to make an appointment. You should return to the ED immediately if you develop fevers, vomiting, chest pain, lightheadedness, weakness or any other concerning signs or symptoms. Thank you for letting us partake in your care today. Referrals: Ernesto Armstrong MD (PCP) Scribe Attestation Portions of this note were transcribed by Malvin Bernardo. I, Dr. Robertson, personally performed the history, physical exam and medical decision-making; I reviewed and confirmed the accuracy of the information in the transcribed note. Signed by Zechariah Kline, 07/31/16 - 0200 copies to: Ernesto Armstrong MD, Beck O MD Jul 31, 2016 00:56 MALVIN BERNARDO Jul 31, 2016 01:39
[2016-07-31 02:09] VITALS: BP 134/86; PULSE 101; RESP 20; O2SAT 98
== END 2016-07-31 02:10 | disposition home or self-care (01) ==
LOC: SED 00:06
DX: R25.2 Cramp and spasm (principal); E11.42 Type 2 diabetes mellitus with diabetic polyneuropathy; J45.909 Unspecified asthma, uncomplicated; Z98.890 Other specified postprocedural states; Z87.891 Personal history of nicotine dependence; Z88.5 Allergy status to narcotic agent; Z88.8 Allergy status to other drugs, medicaments and biological substances

== ENCOUNTER 2016-08-15 20:18 | Emergency (ER) | payer OTHER ==
[~2016-08-15] VITALS: Ht 152.4 cm; Wt 113.6 kg
[2016-08-15 20:53] VITALS: BP 144/83; PULSE 99; RESP 18; O2SAT 98
--- NOTE | 2016-08-15 23:35 | ED.REPORT ---
HPI-General Illness Date of Service Aug 15, 2016 ED Provider: Javad Hope MD Pt is a 56 year old female with a history of chronic musculoskeletal cramping of unknown etiology, peripheral neuropathy, DM and osteoporosis who presents to the ED complaining of feet cramping onset 17:00 today. She c/o associated bilateral hand cramping and bilateral leg swelling. Pt reports that the swelling and pain is greater in the left than the right. She denies any other symptoms. Pt reports that she took Ropinirole without relief. Per pt, she is not a dialysis pt and she has been taking magnesium. Nursing Notes Stated Complaint: KNEE & HAND CRAMPS Chief Complaint: General Complaint Nursing Notes Reviewed: Yes Allergies: Coded Allergies: morphine (Verified Allergy, Severe, Nausea,Vomiting, 08/15/16) prednisone (Verified Allergy, Unknown, 08/15/16) tramadol (Verified Adverse Reaction, Intermediate, Dizziness, 08/15/16) Scheduled Calcium Carbonate (Calcium) 600 Mg Tablet 600 MG PO BID Lactulose (Lactulose) 10 Gm/15 Ml Solution 10 GM PO TID Loratadine (Claritin) 10 Mg Capsule 10 MG PO DAILY Magnesium Oxide (Magnesium) 250 Mg Tablet 250 MG PO DAILY Multivitamin/Iron/Folic Acid (Cerovite Advanced Form Tab) 1 Each Tablet 1 EACH PO DAILY Potassium Chloride (Potassium Chloride) 10 Meq Tab.er.prt 10 MEQ PO BID Rifaximin (Xifaxan) 550 Mg Tablet 550 MG PO BID Scheduled PRN Albuterol HFA (Proair HFA) 8.5 Gm Hfa.aer.ad 2 PUFFS IH PRN For Shortness of Breath Budesonide/Formoterol 160-4.5 mcg Inh (Symbicort 160-4.5 mcg Inh) 120 Puff Inhaler 1 PUFF INHALATION BID PRN PRN For Shortness of Breath Cyclobenzaprine (Cyclobenzaprine) 5 Mg Tablet 5 MG PO TID PRN PRN Spasm Fluticasone Propionate (Fluticasone Propionate Nasal) 16 Gm [place].susp 1 SPRAY NASAL PRN allergies Metoclopramide (Metoclopramide) 10 Mg Tablet 10 MG PO QID PRN PRN For Nausea Omeprazole (Omeprazole) 20 Mg Capsule.dr 20 MG PO DAILY PRN PRN For Dyspepsia or Heartburn Ondansetron ODT (Ondansetron ODT) 8 Mg Tab.rapdis 8 MG PO QID PRN PRN For Nausea oxyCODONE (oxyCODONE) 5 Mg Tablet 5 MG PO Q6H PRN PRN For Pain General Time Seen by MD: 23:31 Chief Complaint Other (Cramping) Hx Obtained From: Patient Arrived By: Walk-in Sudden in Onset?: No Onset Occurred: 5 - 8 hours ago Symptom Duration: Since onset Location: : Foot left: Foot right: Hand left: Hand right Quality: Cramping Severity: Current: Moderate Severity: Maximum: Moderate Recent Healthcare: Recent doctor visit Similar Sx Previous: Yes Past Medical History Past Medical History Multiple visits for chronic bilateral hand and lower leg cramping - uncertain etiology Non-alcoholic liver cirrhosis (BROWN) Gallbladder disease Uterine cancer Peripheral neuropathy Osteoporosis Asthma Reports: Diabetes mellitus Past Surgical History Thumb surgery Reports: Appendectomy, Hysterectomy Smoking History Former Smoker Social History Alcohol Use: Denies alcohol use Drug Use: Denies drug use Other Social History: Good social support, Local resident Ambulatory Status Independent Review of Systems Full Review of Systems Constitutional: Denies: Fever Respiratory: Denies: Non-productive cough, Shortness of breath Musculoskeletal: Reports: Extremity pain (Cramping), Extremity swelling Complete sys rev & neg: except as marked. Physical Exam Vital Signs Vital Signs Date Time Temp Pulse Resp B/P Pulse Ox O2 Delivery O2 Flow Rate FiO2 08/16/16 01:36 36.7 99 18 144/83 98 Room Air 08/15/16 20:53 36.7 99 18 144/83 98 Room Air Initial VS: Reviewed, Vital signs normal Head / Eyes: Atraumatic, Normocephalic Neck: Supple, Full range of motion Respiratory: Breath sounds normal, Clear to auscultation, No respiratory distress Cardiovascular: Regular rate & rhythm, Heart sounds normal, Intact distal pulses Abdomen / GI: Soft, Non-tender Extremities: Vascular intact, Neuro intact Skin: Warm, Dry, No cyanosis Neurologic: Alert, Oriented, Nonfocal Psychiatric: Mood/affect normal, Behavior normal General/Constitutional: Awake, Alert, Cooperative Wrist / Hand: Atraumatic, Full range of motion, Neurologic intact, Vascular intact No palpable spasms. No apparent injury. Ankle / Foot: Atraumatic, Full range of motion, Neurologic intact, Vascular intact No palpable spasms. No apparent injury. Interpretation & Diagnostics Lab Results Interpretation Result Diagram: 7/3/17 2357 Test 08/15/16 23:57 Sodium Level 141mEq/L (134-144) Potassium Level 3.9mEq/L (3.5-5.2) Chloride Level 109mEq/L (97-108) Carbon Dioxide Level 21mmol/L (18-29) Blood Urea Nitrogen 8mg/dL (6-24) Creatinine 0.78mg/dL (0.57-1.00) Estimat Glomerular Filtration Rate 109mL/min (>59) Glucose Level 80mg/dL (60-99) Calcium Level 7.9mg/dL (8.5-10.1) Magnesium Level 1.9mg/dL (1.6-2.6) Total Bilirubin 3.6mg/dL (0.0-1.2) Aspartate Amino Transf (AST/SGOT) 56U/L (0-50) Alanine Aminotransferase (ALT/SGPT) 20U/L (0-32) Alkaline Phosphatase 169U/L (25-150) Total Protein 6.3g/dL (6.4-8.4) Albumin 2.2g/dL (3.4-5.0) Hold Olivo Top Tube Received (Received) Lab values outside NL range: no clinical significance. Lab Results Interpretation: Mild hypocalcemia, normal potassium, normal magnesium. Re-Eval/Medical Decision Med Decision/Clinical Course 56-year-old female who has been having increasing leg cramps over the last couple of weeks. Laboratory screen is negative for any electrolyte abnormalities, except mild hypocalcemia. She was discharged home with instructions to supplement calcium and magnesium and to try quinine tonic water for its effect. Source of Hx: Old records Time of Eval: 01:20 Re-Evaluation/Progress Note: Pt rechecked. Pt was sleeping. She was informed of her lab results and plan for discharge. Pt understands and agrees with plan for discharge. F/U instructions and RTER warnings given. All questions were addressed. Counseled Regarding: Diagnosis, Lab results, Need for follow-up, When/why to return to ED Discharge & Departure Primary Impression: Muscle cramps Disposition: Home Discharge Condition All VS Reviewed: Yes Condition: Stable Patient Instructions: Leg Cramps (ED) Additional Instructions: You calcium is a little bit low. Recommend taking supplemental calcium and magnesium. Quinine water or tonic water has also been shown to be helpful. Referrals: Ernesto Armstrong MD (PCP) Scribe Attestation Portions of this note were transcribed by Claire White. I, Dr. Hope personally performed the history, physical exam and medical decision-making; I reviewed and confirmed the accuracy of the information in the transcribed note. Signed by: Zechariah Odonnell, 08/16/16 and 01:30. copies to: Ernesto Armstrong MD, Howard L MD Aug 15, 2016 23:35 Claire Wright Aug 15, 2016 23:38
[2016-08-16 00:41] LABS: Magnesium 1.9 mg/dL (1.6-2.6)
[2016-08-16 01:36] VITALS: BP 144/83; PULSE 99; RESP 18; O2SAT 98
== END 2016-08-16 01:39 | disposition home or self-care (01) ==
LOC: SED 20:18
DX: R25.2 Cramp and spasm (principal); M79.89 Other specified soft tissue disorders; C55 Malignant neoplasm of uterus, part unspecified; J45.909 Unspecified asthma, uncomplicated; E11.40 Type 2 diabetes mellitus with diabetic neuropathy, unspecified; Z98.890 Other specified postprocedural states; Z87.891 Personal history of nicotine dependence; Z88.5 Allergy status to narcotic agent; Z88.8 Allergy status to other drugs, medicaments and biological substances

== ENCOUNTER 2016-09-15 21:56 | Emergency (ER) | payer OTHER ==
[~2016-09-15] VITALS: Ht 152.4 cm; Wt 113.6 kg
[2016-09-15 22:26] VITALS: BP 135/81; PULSE 86; RESP 16; O2SAT 99
--- NOTE | 2016-09-15 23:34 | ED.REPORT ---
HPI-General Illness Date of Service Sep 15, 2016 ED Provider: Buzz Wise DO Pt is a 56 year old female with a hx of liver cirrhosis, DM, asthma and osteoporosis reporting to the ED complaining of dizziness onset today. Associated symptoms include nausea, headache, slight confusion, lower extremity swelling, and SOB. Her reports that she did not take her lactulose tonight. Pt reports that she was out in the hot sun today. She states that she usually has about 5 bowel movements per day. Denies cough or hx of paracentesis. Nursing Notes Stated Complaint: DIZZY,VOMITING,DEHYDRATED Chief Complaint: General Complaint Nursing Notes Reviewed: Yes Allergies: Coded Allergies: morphine (Verified Allergy, Severe, Nausea,Vomiting, 08/15/16) prednisone (Verified Allergy, Unknown, 08/15/16) tramadol (Verified Adverse Reaction, Intermediate, Dizziness, 08/15/16) Scheduled Calcium Carbonate (Calcium) 600 Mg Tablet 600 MG PO BID Lactulose (Lactulose) 10 Gm/15 Ml Solution 10 GM PO TID Loratadine (Claritin) 10 Mg Capsule 10 MG PO DAILY Magnesium Oxide (Magnesium) 250 Mg Tablet 250 MG PO DAILY Multivitamin/Iron/Folic Acid (Cerovite Advanced Form Tab) 1 Each Tablet 1 EACH PO DAILY Potassium Chloride (Potassium Chloride) 10 Meq Tab.er.prt 10 MEQ PO BID Rifaximin (Xifaxan) 550 Mg Tablet 550 MG PO BID Scheduled PRN Albuterol HFA (Proair HFA) 8.5 Gm Hfa.aer.ad 2 PUFFS IH PRN For Shortness of Breath Budesonide/Formoterol 160-4.5 mcg Inh (Symbicort 160-4.5 mcg Inh) 120 Puff Inhaler 1 PUFF INHALATION BID PRN PRN For Shortness of Breath Cyclobenzaprine (Cyclobenzaprine) 5 Mg Tablet 5 MG PO TID PRN PRN Spasm Fluticasone Propionate (Fluticasone Propionate Nasal) 16 Gm [place].susp 1 SPRAY NASAL PRN allergies Metoclopramide (Metoclopramide) 10 Mg Tablet 10 MG PO QID PRN PRN For Nausea Omeprazole (Omeprazole) 20 Mg Capsule.dr 20 MG PO DAILY PRN PRN For Dyspepsia or Heartburn Ondansetron ODT (Ondansetron ODT) 8 Mg Tab.rapdis 8 MG PO QID PRN PRN For Nausea oxyCODONE (oxyCODONE) 5 Mg Tablet 5 MG PO Q6H PRN PRN For Pain General Time Seen by MD: 23:29 Chief Complaint Dizziness Hx Obtained From: Patient Arrived By: Walk-in Sudden in Onset?: Yes Onset Occurred: 1 - 4 hours ago Symptom Duration: Since onset Location: : Head Quality: Painful Severity: Current: Moderate Severity: Maximum: Moderate Recent Healthcare: No recent doctor visit, No recent hospitalization Similar Sx Previous: No Past Medical History Past Medical History Multiple visits for chronic bilateral hand and lower leg cramping - uncertain etiology Non-alcoholic liver cirrhosis (BROWN) Gallbladder disease Uterine cancer Peripheral neuropathy Osteoporosis Asthma Reports: Diabetes mellitus Past Surgical History Thumb surgery Reports: Appendectomy, Hysterectomy Smoking History Former Smoker Social History Alcohol Use: Denies alcohol use Drug Use: Denies drug use Other Social History: Good social support, Local resident Ambulatory Status Independent Review of Systems Full Review of Systems Respiratory: Reports: Shortness of breath, Denies: Non-productive cough GI: Reports: Nausea, Denies: Vomiting Musculoskeletal: Reports: Extremity swelling Neurologic: Reports: Confusion, Dizziness, Headache Complete sys rev & neg: except as marked. Physical Exam Vital Signs Vital Signs Date Time Temp Pulse Resp B/P Pulse Ox O2 Delivery O2 Flow Rate FiO2 09/16/16 03:34 36.1 94 16 136/79 98 Room Air 09/15/16 22:26 36.7 86 16 135/81 99 Room Air Initial VS: Reviewed General/Constitutional: Well-developed, Well-nourished Head / Eyes: Atraumatic, Normocephalic, PERRL Abdomen / GI: Soft, Non-tender Skin: Warm, Dry, No cyanosis Neurologic: Alert, Oriented, Nonfocal Psychiatric: Mood/affect normal, Behavior normal, Normal thought content ENT: Atraumatic, Airway patent, Pharynx NL Mucus membranes dry Respiratory / Chest: Atraumatic, Breath sounds NL, Breath sounds = bilat, No respiratory distress, No wheezing Cardiovascular: Heart rate NL, Regular rhythm, Heart sounds NL, No murmurs Lower Extremity / Pelvis / MS: Neurologic intact, Vascular intact +1 pitting edema of bilateral lower extremities Interpretation & Diagnostics Lab Results Interpretation Result Diagram: 09/16/16 0100 09/16/16 0100 Test 09/16/16 01:00 09/16/16 02:10 White Blood Count 4.2th/mm3 (3.8-10.1) Red Blood Count 3.94mil/mm3 (3.90-5.20) Hemoglobin 13.2g/dL (12.0-15.6) Hematocrit 37.5% (35.0-46.0) Mean Corpuscular Volume 95.2fL (81-100) Mean Corpuscular Hemoglobin 33.5pg (27.0-35.0) Mean Corpuscular Hemoglobin Concent 35.2% (32.0-37.0) Red Cell Distribution Width 15.9% (12.3-15.4) Platelet Count 66bil/L (150-400) Neutrophils (%) (Auto) 53.4% (40-74) Lymphocytes (%) (Auto) 32.0% (14-46) Monocytes (%) (Auto) 11.3% (4-12) Eosinophils (%) (Auto) 2.9% (0-5) Basophils (%) (Auto) 0.2% (0-3) Prothrombin Time 14.7sec (8.1-12.5) Prothromb Time International Ratio 1.37ratio Sodium Level 141mEq/L (134-144) Potassium Level 3.9mEq/L (3.5-5.2) Chloride Level 111mEq/L (97-108) Carbon Dioxide Level 22mmol/L (18-29) Blood Urea Nitrogen 9mg/dL (6-24) Creatinine 0.77mg/dL (0.57-1.00) Estimat Glomerular Filtration Rate 110mL/min (>59) Glucose Level 89mg/dL (60-99) Lactic Acid Level 1.6mmol/L (0.4-2.0) Calcium Level 8.4mg/dL (8.5-10.1) Magnesium Level 1.9mg/dL (1.6-2.6) Total Bilirubin 4.0mg/dL (0.0-1.2) Aspartate Amino Transf (AST/SGOT) 52U/L (0-50) Alanine Aminotransferase (ALT/SGPT) 20U/L (0-32) Alkaline Phosphatase 173U/L (25-150) Total Protein 6.6g/dL (6.4-8.4) Albumin 2.3g/dL (3.4-5.0) Lipase 69U/L (13-60) Urine Color Yellow (YELLOW) Urine Appearance Cloudy (CLEAR,HAZY) Urine pH 7.0 (5.0-8.0) Urine Specific [place] 1.010 (1.003-1.035) Urine Protein Negativemg/dL (NEG,TRACE) Urine Glucose (UA) Negativemg/dL (NEGATIVE) Urine Ketones Negativemg/dL (NEGATIVE) Urine Occult Blood Negative (NEGATIVE) Urine Nitrite Negative (NEGATIVE) Urine Bilirubin Small (NEGATIVE) Urine Ictotest Positive (Negative) Urine Urobilinogen 1.0mg/dL (NORMAL) Urine Leukocyte Esterase Small (NEGATIVE) Urine RBC 3-10/hpf (0-2) Urine WBC 6-10/hpf (0-5) Urine Epithelial Cells Moderate/hpf (NONE-MOD) Urine Crystals None seen (NONE SEEN) Urine Bacteria Many/hpf (NONE-FEW) Urine Hyaline Casts None/lpf (NONE) Urine Granular Casts None seen (NONE SEEN) Urine Waxy Casts None seen (NONE SEEN) Urine Red Blood Cell Casts None seen (NONE SEEN) Urine White Blood Cell Casts None seen (NONE SEEN) Urine Mucus None seen (None Seen) Urine Trichomonas None seen (NONE SEEN) Urine Yeast None (NONE SEEN) Urinalysis Comment None Urine Culture Reflexed Indicated ECG Interpretation ECG Interpretation: Abnormal R wave progression is unchanged from previous. When compared with previous EKG dated 04/23/16 there is no change. Time: 12:53 Interpreted by: ED physician Normal ECG Interpretation: Normal rate (90), Normal sinus rhythm X-Ray Chest Interpretation Chest Xray Interpretation: No acute cardiopulmonary issues. View: Portable, 1 view Interpretation / Wet Read by: Wet read ED physician Re-Eval/Medical Decision Med Decision/Clinical Course 56yo F with h/o liver cirrosis presents with mutiple sx including dizziness, nausea, headache and SOB. Her VS, labs and exam are normal, except her mucous membranes were dry. She is not hypoxic and cxr unremarkable. She was treated with zofran and 1L IVF and symptoms improved. Pyuria was noted and I started 5 days of macrobid. Instructed to f/u with PCP within the next week and return if sx worsen Time of Eval: 01:57 Patient Status: Condition improved Re-Evaluation/Progress Note: Discussed xray and lab results. Pt feels a little better after fluids. Discussed plan for discharge. Counseled Regarding: Diagnosis, Lab results Discharge & Departure Primary Impression: Dehydration Additional Impression: UTI (urinary tract infection) Urinary tract infection type: site unspecified Hematuria presence: without hematuria Qualified Code: N39.0 - Urinary tract infection, site not specified Disposition: Home Discharge Condition All VS Reviewed: Yes Condition: Improved Additional Instructions: Thank you for trusting us with your care today. Your chest x ray looked normal, and your labs were reassuring. Your urine showed a urinary tract infection. Take the antibiotic twice daily for 5 days. Return to the ER if you develop any new or worsening symptoms. Follow up with your primary care doctor in the next week. Referrals: Ernesto Armstrong MD (PCP) [place] Attestation Portions of this note were transcribed by Tisha Taylor. I, Dr. Wise personally performed the history, physical exam and medical decision-making; I reviewed and confirmed the accuracy of the information in the transcribed note. Signed by: Zechariah Yoon, 09/16/2016. copies to: Ernesto Armstrong MD, Gary R DO Sep 15, 2016 23:34 TISHA TAYLOR Sep 16, 2016 00:07
[2016-09-16] MEDS ORDERED: 0.9% Sodium Chloride 1,000 ML IV ONE (00:02)
[2016-09-16] MEDS ORDERED: Ondansetron 2 mg/mL 2 mL Inj IVPUSH ONE (00:05)
[2016-09-16 01:04] LABS: BASOPHILS % (AUTO) 0.2 % (0-3); EOSINOPHILS % (AUTO) 2.9 % (0-5)
[2016-09-16 01:06] LABS: MONOCYTES % (AUTO) 11.3 % (4-12); Mean Corpuscular Hemoglobin 33.5 pg (27.0-35.0); Mean Corpuscular Volume 95.2 fL (81-100); NEUTROPHILS % (AUTO) 53.4 % (40-74); Platelet Count 66 bil/L (150-400)
[2016-09-16 01:22] LABS: INR 1.37 ratio
[2016-09-16 01:30] LABS: Magnesium 1.9 mg/dL (1.6-2.6)
[2016-09-16 02:23] LABS: APPEARANCE,URINE CLOUDY (CLEAR,HAZY); COLOR,URINE YELLOW (YELLOW); OCCULT BLOOD,URINE NEGATIVE (NEGATIVE)
[2016-09-16 02:24] LABS: ICTOTEST,URINE POSITIVE (Negative)
[2016-09-16] MEDS ORDERED: Nitrofurantoin Monohyd-Macrocryst 100 mg Capsule PO ONE (02:45)
[2016-09-16 03:34] VITALS: BP 136/79; PULSE 94; RESP 16; O2SAT 98
--- NOTE | 2016-09-16 08:52 | DRSVH ---
PROCEDURE: X-RAY CHEST, TWO VIEWS ([id number]) INDICATIONS: SHORT OF BREATH, DIZZY, VOMITING TECHNIQUE: 2 views of the chest were acquired. COMPARISON: [facility], CR, XR CHEST 1VW (PORTABLE), 02/22/2016, 23:16. [facility], CR, XR CHEST 2VW, 09/03/2015, 13:34. FINDINGS: Surgical changes and devices: None. Lungs and pleura: No pleural effusions or pneumothorax. Lungs are clear. Mediastinum: Mediastinal contours are normal. Heart size is normal. Bones and chest wall: No suspicious bony abnormalities. Soft tissues appear unremarkable. IMPRESSION: No acute cardiopulmonary disease. Dictated by: Jaylen Mendenhall [facility] Interpreted: Leif Carrillo MD on 09/16/2016 at 8:31 Approved by: Leif Carrillo M.D. on 09/16/2016 at 8:50
== END 2016-09-16 03:27 | disposition home or self-care (01) ==
LOC: SED 21:56
DX: E86.0 Dehydration (principal); N39.0 Urinary tract infection, site not specified; E11.40 Type 2 diabetes mellitus with diabetic neuropathy, unspecified; Z87.891 Personal history of nicotine dependence; Z85.42 Personal history of malignant neoplasm of other parts of uterus; Z90.710 Acquired absence of both cervix and uterus; Z88.5 Allergy status to narcotic agent; Z88.8 Allergy status to other drugs, medicaments and biological substances
CPT/HCPCS: 36415; 71020; 80053; 81000; 83605; 83690; 83735; 85025; 85610; 87086; 87088; 93005; 96361; 96374; 99285; J2405; J7030

== ENCOUNTER 2016-10-10 21:27 | Emergency (ER) | payer OTHER ==
[~2016-10-10] VITALS: Ht 152.4 cm; Wt 118.0 kg
[2016-10-10 21:50] VITALS: PULSE 62; RESP 20; O2SAT 100
--- NOTE | 2016-10-10 21:59 | ED.REPORT ---
HPI-Extremity Problem Upper Date of Service Oct 10, 2016 ED Provider: Fernando Robertson MD Patient is a 56 year old female with a history of diabetes who presents to the ED complaining of right wrist pain onset earlier today. Associated symptoms include swelling and pain that radiates into her right forearm. She denies numbness or weakness. The patient reports that she accidentally closed the car door on her arm. Nursing Notes Stated Complaint: HIT ARM ON CAR DOOR Chief Complaint: Extremity Trauma Nursing Notes Reviewed: Yes Allergies: Coded Allergies: morphine (Verified Allergy, Severe, Nausea,Vomiting, 08/15/16) prednisone (Verified Allergy, Unknown, 08/15/16) tramadol (Verified Adverse Reaction, Intermediate, Dizziness, 08/15/16) Scheduled Calcium Carbonate (Calcium) 600 Mg Tablet 600 MG PO BID Lactulose (Lactulose) 10 Gm/15 Ml Solution 10 GM PO TID Loratadine (Claritin) 10 Mg Capsule 10 MG PO DAILY Magnesium Oxide (Magnesium) 250 Mg Tablet 250 MG PO DAILY Multivitamin/Iron/Folic Acid (Cerovite Advanced Form Tab) 1 Each Tablet 1 EACH PO DAILY Potassium Chloride (Potassium Chloride) 10 Meq Tab.er.prt 10 MEQ PO BID Rifaximin (Xifaxan) 550 Mg Tablet 550 MG PO BID Scheduled PRN Albuterol HFA (Proair HFA) 8.5 Gm Hfa.aer.ad 2 PUFFS IH PRN For Shortness of Breath Budesonide/Formoterol 160-4.5 mcg Inh (Symbicort 160-4.5 mcg Inh) 120 Puff Inhaler 1 PUFF INHALATION BID PRN PRN For Shortness of Breath Cyclobenzaprine (Cyclobenzaprine) 5 Mg Tablet 5 MG PO TID PRN PRN Spasm Fluticasone Propionate (Fluticasone Propionate Nasal) 16 Gm [place].susp 1 SPRAY NASAL PRN allergies Metoclopramide (Metoclopramide) 10 Mg Tablet 10 MG PO QID PRN PRN For Nausea Omeprazole (Omeprazole) 20 Mg Capsule.dr 20 MG PO DAILY PRN PRN For Dyspepsia or Heartburn Ondansetron ODT (Ondansetron ODT) 8 Mg Tab.rapdis 8 MG PO QID PRN PRN For Nausea oxyCODONE (oxyCODONE) 5 Mg Tablet 5 MG PO Q6H PRN PRN For Pain General Time Seen by MD: 21:59 Chief Complaint Wrist injury right Hx Obtained From: Patient Arrived By: Walk-in Onset Occurred: 1 - 4 hours ago Symptom Duration: Since onset Caused by: Crushing injury Location: : Wrist right Quality: Painful Severity: Current: Moderate Exacerbated by: Movement Recent Healthcare: Recent doctor visit Similar Sx Previous: No Past Medical History Past Medical History Multiple visits for chronic bilateral hand and lower leg cramping - uncertain etiology Non-alcoholic liver cirrhosis (BROWN) Gallbladder disease Uterine cancer Peripheral neuropathy Osteoporosis Asthma Reports: Diabetes mellitus Past Surgical History Thumb surgery Reports: Appendectomy, Hysterectomy Smoking History Former Smoker Social History Alcohol Use: Denies alcohol use Drug Use: Denies drug use Other Social History: Good social support, Local resident Ambulatory Status Independent Review of Systems Constitutional: Denies: Chills, Fever Musculoskeletal: Reports: Extremity pain (right wrist), Extremity swelling Skin: Denies Itching, Denies Rash Neurologic: Denies: Numbness, Weakness Complete sys rev & neg: except as marked. Physical Exam Initial Vital Signs Vital Signs (First) Date Time Temp Pulse Resp B/P Pulse Ox O2 Delivery O2 Flow Rate FiO2 10/10/16 21:50 36.4 62 20 100 10/10/16 23:14 146/78 Room Air Initial VS: Reviewed General/Constitutional: Awake, Alert, No acute distress Respiratory / Chest: Atraumatic, No respiratory distress Upper Extremity / MS: Atraumatic, Full range of motion Wrist / Hand: Atraumatic, No swelling good radial pulses no external evidence of trauma complains of diffuse tenderness to the wrist no focal tenderness or bony tenderness Skin: Atraumatic, Color NL, No rash, Warm, Dry Neurologic: Oriented X3, Speech NL Head / Eyes: Atraumatic, Normocephalic, PERRL, EOMI Interpretation & Diagnostics X-Ray Interpretation Xray Interpretation: no evidence of fracture X-Ray Ordered: Wrist right Interpretation / Wet Read by: Wet read ED physician Interpretation: Normal exam Re-Eval/Medical Decision Med Decision/Clinical Course Patient is a 56 year old female with a history of diabetes who presents to the ED complaining of right wrist pain onset earlier today. Associated symptoms include swelling and pain that radiates into her right forearm. She denies numbness or weakness. The patient reports that she accidentally closed the car door on her arm. On examination she is diffusely tender about her right wrist without any focal tenderness, bony deformities or step-offs. She is neurologically and vascularly intact in the affected extremity and is able to flex and extend her fingers. There are no abrasions, hematomas or objective signs of trauma. right wrist X-ray: no evidence of fracture per my interpretation She was given Toradol for pain with good effect. She declined ice pack. At this time, I feel that she is appropriate for discharge. She will follow up closely with her primary care physician. Prior to discharge follow-up and return precautions were reviewed in detail with the patient who verbalized understanding and agreement with the plan. The patient was discharged in stable condition. Re-Evaluation/Progress : Time of Eval: 22:42 Re-Evaluation/Progress Note: Discussed results and plan for discharge. Patient understands and agrees to plan. All questions were addressed. Counseled Regarding: Diagnosis, Lab results, Need for follow-up, When/why to return to ED Discharge & Departure Impression: Primary Impression: Contusion of wrist, right Disposition: Home Discharge Condition All VS Reviewed: Yes Condition: Stable Patient Instructions: Contusions in Adults (ED) Additional Instructions: Thank you for seeking care at the emergency room. Our primary goal today in the Emergency Department was to evaluate you for any life-threatening conditions. Your evaluation was reassuring. Your X-ray showed no evidence of a fracture. You can use Tylenol for pain. You can also try using heat packs on your wrist to help with the pain. You should follow-up with your primary doctor next week. You should return to the Emergency Department immediately if you develop numbness, tingling, increasing pain, weakness or any other concerning signs or symptoms. Thank you for letting us partake in your care today. Referrals: Ernesto Armstrong MD (PCP) [place] Attestation Portions of this note were transcribed by Sara Castellon. I, Dr. Robertson personally performed the history, physical exam and medical decision-making; I reviewed and confirmed the accuracy of the information in the transcribed note. Signed by: Zechariah Ambrosio, 10/10/16 copies to: Ernesto Armstrong MD, Beck O MD Oct 10, 2016 21:59 Yuliana Castellon Oct 10, 2016 22:18
[2016-10-10 23:14] VITALS: BP 146/78; PULSE 82; RESP 16; O2SAT 98
--- NOTE | 2016-10-11 08:12 | DRSVH ---
PROCEDURE: X-RAY RIGHT WRIST COMPLETE, MINIMUM THREE VIEWS ([id number]) INDICATIONS: pain TECHNIQUE: 5 views of the wrist were acquired. COMPARISON: None. FINDINGS: Bones: No fractures or dislocations. No suspicious bony lesions. Scaphoid view: No displaced fractures Soft tissues: No suspicious soft tissue calcifications. IMPRESSION: No acute fractures or dislocations. If there is clinical concern for a radiographically occult scaphoid fracture then a noncontrast CT or MRI would be recommended for further evaluation. Dictated by: Loy Gayle M.D. on 10/11/2016 at 8:09 Approved by: Loy Gayle M.D. on 10/11/2016 at 8:10
== END 2016-10-10 23:16 | disposition home or self-care (01) ==
LOC: SED 22:12
DX: S60.211A Contusion of right wrist, initial encounter (principal); W23.0XXA Caught, crushed, jammed, or pinched between moving objects, initial encounter; Y93.9 Activity, unspecified; Y92.9 Unspecified place or not applicable; Y99.8 Other external cause status; E11.40 Type 2 diabetes mellitus with diabetic neuropathy, unspecified; Z85.42 Personal history of malignant neoplasm of other parts of uterus; Z90.710 Acquired absence of both cervix and uterus; Z87.891 Personal history of nicotine dependence; Z88.5 Allergy status to narcotic agent; Z88.8 Allergy status to other drugs, medicaments and biological substances
CPT/HCPCS: 73110; 96372; 99284; J1885

== ENCOUNTER 2016-10-18 16:25 | Emergency (ER) | payer OTHER ==
[~2016-10-18] VITALS: Ht 152.4 cm; Wt 118.2 kg
[~2016-10-18 16:25] MED LIST changes: +OXYC-530 PO; -OXYC5TAB72 PO
[2016-10-18 16:38] VITALS: BP 151/81; PULSE 100; RESP 16; O2SAT 99
[2016-10-18 17:41] LABS: BASOPHILS % (AUTO) 0.3 % (0-3); MONOCYTES % (AUTO) 15.7 % (4-12); Mean Corpuscular Volume 101.1 fL (81-100); NEUTROPHILS % (AUTO) 46.4 % (40-74); Platelet Count 64 bil/L (150-400)
[2016-10-18 17:52] LABS: Magnesium 1.8 mg/dL (1.6-2.6)
--- NOTE | 2016-10-18 18:10 | ED.REPORT ---
HPI-General Illness Date of Service Oct 18, 2016 ED Provider: Buzz Wise Korey BAILEY Pt is a 56 y/o female with a history of HTN, DM, and osteoporosis who presents to the ED c/o cramping to her fingers and legs onset 1330 today. She went to [place] last night for similar symptoms and was told her calcium levels were low. She thinks the lactulose for her non-alcoholic liver cirrhosis is reducing her electrolytes. Additional symptoms include nausea. She denies fever, cough, chills, vomiting, diarrhea, SOB, chest pain, or focal weakness. She takes two calcium vitamins a day as told by the nurse at [facility]. Nursing Notes Stated Complaint: CRAMPING IN LEGS & HANDS Chief Complaint: General Complaint Nursing Notes Reviewed: Yes Allergies: Coded Allergies: morphine (Verified Allergy, Severe, Nausea,Vomiting, 10/18/16) prednisone (Verified Allergy, Unknown, 10/18/16) tramadol (Verified Adverse Reaction, Intermediate, Dizziness, 10/18/16) Scheduled Calcium Carbonate (Calcium) 600 Mg Tablet 600 MG PO BID Lactulose (Lactulose) 10 Gm/15 Ml Solution 10 GM PO TID Loratadine (Claritin) 10 Mg Capsule 10 MG PO DAILY Magnesium Oxide (Magnesium) 250 Mg Tablet 250 MG PO DAILY Multivitamin/Iron/Folic Acid (Cerovite Advanced Form Tab) 1 Each Tablet 1 EACH PO DAILY Potassium Chloride (Potassium Chloride) 10 Meq Tab.er.prt 10 MEQ PO BID Rifaximin (Xifaxan) 550 Mg Tablet 550 MG PO BID Scheduled PRN Albuterol HFA (Proair HFA) 8.5 Gm Hfa.aer.ad 2 PUFFS IH PRN For Shortness of Breath Budesonide/Formoterol 160-4.5 mcg Inh (Symbicort 160-4.5 mcg Inh) 120 Puff Inhaler 1 PUFF INHALATION BID PRN PRN For Shortness of Breath Cyclobenzaprine (Cyclobenzaprine) 5 Mg Tablet 5 MG PO TID PRN PRN Spasm Fluticasone Propionate (Fluticasone Propionate Nasal) 16 Gm [place].susp 1 SPRAY NASAL PRN allergies Metoclopramide (Metoclopramide) 10 Mg Tablet 10 MG PO QID PRN PRN For Nausea Omeprazole (Omeprazole) 20 Mg Capsule.dr 20 MG PO DAILY PRN PRN For Dyspepsia or Heartburn Ondansetron ODT (Ondansetron ODT) 8 Mg Tab.rapdis 8 MG PO QID PRN PRN For Nausea oxyCODONE (oxyCODONE) 5 Mg Tablet 5 MG PO Q6H PRN PRN For Pain General Time Seen by MD: 18:04 Chief Complaint Other (Cramping in fingers and legs ) Hx Obtained From: Patient, Spouse Arrived By: Walk-in Sudden in Onset?: Yes Onset Occurred: 1 - 4 hours ago Quality: Painful Severity: Current: Mild Severity: Maximum: Moderate Recent Healthcare: Recent doctor visit Similar Sx Previous: Yes Past Medical History Past Medical History Multiple visits for chronic bilateral hand and lower leg cramping - uncertain etiology Non-alcoholic liver cirrhosis (BROWN) Gallbladder disease Uterine cancer Peripheral neuropathy Osteoporosis Asthma Reports: Diabetes mellitus Past Surgical History Thumb surgery Reports: Appendectomy, Hysterectomy Smoking History Former Smoker Social History Alcohol Use: Denies alcohol use Drug Use: Denies drug use Other Social History: Good social support, , Local resident Ambulatory Status Independent Review of Systems Cramping in fingers and legs Full Review of Systems Constitutional: Denies: Chills, Fever Respiratory: Denies: Non-productive cough, Prod cough, clear, Shortness of breath Cardiovascular: Denies: Chest pain GI: Reports: Nausea, Denies: Diarrhea, Vomiting Neurologic: Denies: Focal weakness Complete sys rev & neg: except as marked. Physical Exam Vital Signs Vital Signs Date Time Temp Pulse Resp B/P Pulse Ox O2 Delivery O2 Flow Rate FiO2 10/18/16 22:05 75 18 132/62 99 Room Air 10/18/16 19:54 91 20 126/96 97 10/18/16 16:38 36.8 100 16 151/81 99 Room Air Initial VS: Reviewed Head / Eyes: Atraumatic, Normocephalic Neck: Supple, Full range of motion Abdomen / GI: Soft, Non-tender Back: No CVA tenderness Skin: Warm, Dry, No cyanosis Neurologic: Alert, Oriented, Nonfocal Psychiatric: Mood/affect normal, Behavior normal, Normal thought content General/Constitutional: Awake, Alert Respiratory / Chest: Atraumatic, Breath sounds NL, Breath sounds = bilat, No respiratory distress Cardiovascular: Heart rate NL, Regular rhythm, Heart sounds NL Trace pitting edema bilaterally, worse on left than right Interpretation & Diagnostics Lab Results Interpretation Result Diagram: 10/18/16 1715 10/18/16 1715 Test 10/18/16 17:15 White Blood Count 4.0th/mm3 (3.8-10.1) Red Blood Count 3.65mil/mm3 (3.90-5.20) Hemoglobin 12.4g/dL (12.0-15.6) Hematocrit 36.9% (35.0-46.0) Mean Corpuscular Volume 101.1fL (81-100) Mean Corpuscular Hemoglobin 34.0pg (27.0-35.0) Mean Corpuscular Hemoglobin Concent 33.6% (32.0-37.0) Red Cell Distribution Width 15.3% (12.3-15.4) Platelet Count 64bil/L (150-400) Neutrophils (%) (Auto) 46.4% (40-74) Lymphocytes (%) (Auto) 33.3% (14-46) Monocytes (%) (Auto) 15.7% (4-12) Eosinophils (%) (Auto) 4.0% (0-5) Basophils (%) (Auto) 0.3% (0-3) Hold Purple Top Tube Received (Received) Hold Blue Top Tube Received (Received) Sodium Level 138mEq/L (134-144) Potassium Level 4.2mEq/L (3.5-5.2) Chloride Level 109mEq/L (97-108) Carbon Dioxide Level 19mmol/L (18-29) Blood Urea Nitrogen 10mg/dL (6-24) Creatinine 0.76mg/dL (0.57-1.00) Estimat Glomerular Filtration Rate 112mL/min (>59) Glucose Level 82mg/dL (60-99) Calcium Level 8.0mg/dL (8.5-10.1) Phosphorus Level 2.9mg/dL (2.5-4.9) Magnesium Level 1.8mg/dL (1.6-2.6) Total Bilirubin 4.1mg/dL (0.0-1.2) Aspartate Amino Transf (AST/SGOT) 60U/L (0-50) Alanine Aminotransferase (ALT/SGPT) 23U/L (0-32) Alkaline Phosphatase 134U/L (25-150) Total Protein 6.3g/dL (6.4-8.4) Albumin 2.1g/dL (3.4-5.0) Parathyroid Hormone (Intact) 22pg/mL (15-65) Hold [place] Top Tube Received (Received) Hold Olivo Top Tube Received (Received) Re-Eval/Medical Decision Med Decision/Clinical Course 56-year-old female with a history of osteoporosis presents with symptoms of extremity cramping and pain. She has had recurrent hypocalcemia and takes calcium citrate 600 mg twice daily for this, however continues to have low calcium. She is not taking any vitamin D supplements. I suspect this is the reason she is not absorbing the appropriate amount of calcium, however did check a PTH and PTHrp as well. She was feeling better after she received calcium and Toradol for pain. She also got some Zofran to help with nausea and vomiting. She will follow up with her PCP and begin taking vitamin D. Source of Hx: Old records Time of Eval: 19:51 Re-Evaluation/Progress Note: Patient rechecked. Vital signs reviewed. Pain medicine not working yet according to patient. Time of Eval: 21:14 Patient Status: Condition improved Re-Evaluation/Progress Note: Patient rechecked. Discussed plan for discharge. Patient understands and agrees with plan. F/U instructions and RTER warnings given. All questions addressed at this time. Counseled Regarding: Diagnosis, Lab results, Need for follow-up, When/why to return to ED Discharge & Departure Primary Impression: Hypocalcemia Additional Impressions: Muscle cramps Nausea Thrombocytopenia Disposition: Home Discharge Condition All VS Reviewed: Yes Condition: Stable Patient Instructions: Hypocalcemia (ED) Additional Instructions: Thank you for entrusting us with your care today. Your emergency department evaluation today including examination and lab work are reassuring. There is no evidence of infection or anemia. Increase your calcium citrate 600 mg vitamins to 3 times a day to improve your symptoms. I recommend starting Vitamin D supplements, 3298-5212 international units daily, to help with the absorption of calcium. These can be purchased at any pharmacy [email or web address]. To help with the swelling in your lower legs, you can use compression socks and elevating your legs. Please call your primary care physician tomorrow in order to schedule a follow- up appointment for a recheck. Please return to the emergency department for any new or worsening conditions including any worsening cramping, lightheadedness, or weakness. Referrals: Nathaniel, Ernesto S MD (PCP) Scribe Attestation Portions of this note were transcribed by Glenys Harrison. I, Dr. iWse, personally performed the history, physical exam and medical decision-making; I reviewed and confirmed the accuracy of the information in the transcribed note. copies to: Ernesto Armstrong MD, Gary R DO Oct 18, 2016 18:10 Glenys Harrison Oct 18, 2016 18:40
[2016-10-18] MEDS ORDERED: Calcium GLUCO 10% (mEq) Inj 9.3 MEQ in Dextrose 5% 100 ML IV ONE (18:40)
[2016-10-18] MEDS ORDERED: Ondansetron 2 mg/mL 2 mL Inj IVPUSH ONE (18:55)
[2016-10-18 19:54] VITALS: BP 126/96; PULSE 91; RESP 20; O2SAT 97
[2016-10-18 22:05] VITALS: BP 132/62; PULSE 75; RESP 18; O2SAT 99
[2016-10-19 04:08] LABS: Vitamin D, 25-Hydroxy 13.3 ng/mL (30.0-100.0)
[2016-10-21 16:09] LABS: PTH RELATED PEPTIDE <1.1 pmol/L (.)
== END 2016-10-18 22:06 | disposition home or self-care (01) ==
LOC: SED 16:25
DX: E83.51 Hypocalcemia (principal); R25.2 Cramp and spasm; R11.0 Nausea; D69.6 Thrombocytopenia, unspecified; E11.40 Type 2 diabetes mellitus with diabetic neuropathy, unspecified; Z85.42 Personal history of malignant neoplasm of other parts of uterus; Z88.5 Allergy status to narcotic agent; Z88.8 Allergy status to other drugs, medicaments and biological substances
CPT/HCPCS: 36415; 80053; 82306; 83519; 83735; 83970; 84100; 85025; 96374; 96375; 99284; J0610; J1885; J2405